=== PATIENT | male | born 1980 | race Caucasian/White ===

== ENCOUNTER 2019-04-19 13:41 | Emergency (ER) | payer OTHER, SELFPAY ==
[2019-04-19 14:17] VITALS: BP 145/91; PULSE 108; RESP 18; TEMP 36.4; O2SAT 100
--- NOTE | 2019-04-19 14:18 | DI.RAD.S_ITS ---
PROCEDURE: XR FOOT LT MIN 3V INDICATIONS: Wounds on foot. Possible osteo. TECHNIQUE: During views of the foot were acquired. COMPARISON: [facility], MR, FOOT W&WO CONTRAST, 10/03/2016, 18:18. FINDINGS: There is prominent focal soft tissue swelling about the 5th metatarsophalangeal joint with associated soft tissue air. Lucency involving the head of the 5th metatarsal with developing erosions is identified. There also appear to be erosions involving the proximal phalanx of the 5th toe. No definite additional bony erosions are appreciated. No displaced fractures or dislocations are identified. No suspicious soft tissue abnormalities or radiopaque foreign bodies are evident. IMPRESSION: Erosions/lucencies involving the 5th metatarsophalangeal joint with overlying soft tissue swelling and soft tissue air are suggestive of a focal infection with osteomyelitis. Clinical correlation is recommended. Dictated by: James Johnson M.D. on 04/19/2019 at 13:47 Approved by: James Johnson M.D. on 04/19/2019 at 13:49
[2019-04-19 15:12] VITALS: BP 128/92; PULSE 97; RESP 16; O2SAT 98
--- NOTE | 2019-04-19 15:49 | ED_ITS ---
HPI - Wound/Laceration <Rosa MartinoJOSE - Last Filed: 04/19/19 20:52> General Chief Complaint: Wound/Laceration Stated Complaint: wound on left foot Time Seen by Provider: 04/19/19 14:49 Source: patient and family Mode of arrival: Wheelchair History of Present Illness HPI narrative: 38yo male with a history of insulin-dependent diabetes and past surgery for osteomyelitis in the same put a few years ago, presents to the emergency department complaining of a two wounds on his left foot (one on the plantar aspect in the top of foot), he states he was sent here by wound care, he sees would be [facility]. Patient states a few weeks ago he developed a blister on his foot, it popped any continue to wear his boots at later got infected. He was seen by his primary care provider a few weeks ago a nd started on antibiotics. Three days ago he developed an abscess which was drained 3 days ago. Patient is continue to take cephalexin and Bactrim, he states the redness and swelling has significantly improved. However, the wound care nurse arrived as home today and was worried about the deepness of the wound so he was sent for an evaluation of osteomyelitis. Patient denies any fevers, chills, nausea, vomiting, diarrhea, worsening pain, or other concerns. He states he has had osteomyelitis on his foot in the past this had surgery for this but the current wounds are different from his previous infections. Patient states he has another appointment with his primary care doctor scheduled on Monday. Related Data Home Medications Medication Instructions Recorded Confirmed insulin glargine [Lantus U-100 45 unit SQ HS #0 08/15/16 Insulin] insulin glulisine U-100 [Apidra 0 unit SQ #0 08/15/16 U-100 Insulin] atorvastatin 20 mg PO DAILY 04/19/19 04/19/19 cephalexin 1,000 mg PO [id number] 04/19/19 04/19/19 insulin NPH isoph U-100 human unit SUBCUT 04/19/19 [Humulin N NPH Insulin KwikPen] lisinopril 10 mg PO DAILY 04/19/19 04/19/19 sulfamethoxazole-trimethoprim 1 tab PO [id number] 04/19/19 04/19/19 Allergies Allergy/AdvReac Type Severity Reaction Status Date / Time No Known Drug Allergies Allergy Unknown Unverified 06/21/17 12:29 [NO KNOWN DRUG ALLERGIES] HAYFEVER Allergy Unknown Uncoded 06/21/17 12:29 Review of Systems <JOSE Jaimes - Last Filed: 04/19/19 20:52> Review of Systems Narrative: REVIEW OF SYSTEMS: GENERAL: Denies fever or chills. HENT: Denies head trauma. EYE: Denies double vision or vision loss. CARDIOVASCULAR: Denies syncope. MUSCULOSKELETAL: Denies weakness, or deformities. INTEGUMENTARY: Complains of wound to left foot, see HPI. NEURO: Denies numbness or tingling. Patient History <JOSE Jaimes - Last Filed: 04/19/19 20:52> Medical History Diabetes (Acute) Diabetic foot ulcer (Acute) Social History Smoking Status: Smoker, status unknown Smoking Status: Smoker, status unknown Substance Use Type: does not use Exam <JOSE Jaimes - Last Filed: 04/19/19 20:52> Initial Vital Signs Initial Vital Signs: Vital Signs Temperature 97.5 F L 04/19/19 14:17 Pulse Rate 108 H 04/19/19 14:17 Respiratory Rate 18 04/19/19 14:17 Blood Pressure 145/91 H 04/19/19 14:17 Pulse Oximetry 100 04/19/19 14:17 PHYSICAL EXAMINATION: GENERAL: Well groomed, alert, and cooperative. Answers questions promptly and appropriately. Vital signs noted. HENT: Normocephalic, atraumatic. Ear canals patent. Oral mucosa is pink and moist. EYES: Conjunctiva pink, sclera white, no periorbital swelling. CHEST: Normal to inspection and without deformities. CARDIOVASCULAR: S1 and S2 sounds normal. Regular rate and rhythm, no murmurs, clicks, or bruits. No pedal edema. RESPIRATORY: Normal respiratory rate, trachea midline, airway patent. No stridor, nasal flaring or accessory muscle use. Lungs are clear in all [place] without wheeze, rhonchi, or crackles. GASTROINTESTINAL: Bowel sounds normoactive. Abdomen is soft and non-tender. No organomegaly. MUSCULOSKELETAL: Normal gait and coordination. Equal tone and mass bilaterally. EXTREMITIES: CMS intact to feet and toes. Pedal pulses 2+ and intact. SKIN: Warm, dry, soft, appropriate color for ethnicity. A circular wound approximately 3cm x 3.5cm noted to the top of left foot over mid 4th and 5th metatarsals--shallow in nature, wound bed with yellow tissue and surrounding dried serosanguineous drainage. We deep tunneling circular wound noted on the bottom aspect of left foot approximately over 4th and 5th metatarsals and is 2 cm x 2 cm in diameter and >2cm deep, yellow granular tissue and minute amount of serosanguineous drainage noted. No necrosis visualized. NEURO: Alert and Oriented X 3. Good coordination. No ataxia, or sensory deficits, or cognitive issues. PSYCH: Appropriate affect and mood. <Harper Arechiga DO - Last Filed: 04/19/19 21:19> Initial Vital Signs Initial Vital Signs: Vital Signs Temperature 97.5 F L 04/19/19 14:17 Pulse Rate 108 H 04/19/19 14:17 Respiratory Rate 18 04/19/19 14:17 Blood Pressure 145/91 H 04/19/19 14:17 Pulse Oximetry 100 04/19/19 14:17 Course <JOSE Jaimes - Last Filed: 04/19/19 20:52> Course Course Narrative: Patient states he was not diagnosed with osteomyelitis with these wounds at this time, he states his last x-ray about a week ago showed ?no evidence of osteomyelitis. Patient states if given a choice he would rather return home and receive infusions versus be admitted. Patient was started on v ancomycin and ceftriaxone. After discussion with patient, he states he will leave Against Medical Advice he has too as he does not like staying in the hospital. Patient states he does have an appointment with his provider on Monday to order the wound care. Patient continues to be hemodynamically stable throughout the emergency department stay. Orders Ordered: ED Orders 04/19/19 14:18 XR foot LT min 3V Stat 04/19/19 15:45 C-Reactive Protein Quant Stat Complete Blood Count AUTO DIFF Stat Comprehensive Metabolic Panel Stat Erythrocyte Sedimentation Rate Stat Hemoglobin A1C% w Est Avg Glu Stat Lactate (Lactic Acid) Stat Procalcitonin Stat 04/19/19 15:56 Wound Culture and Gram Stain Stat 04/19/19 16:15 Blood Culture Stat 04/19/19 18:55 MR foot LT wo/w con Stat Discontinued Medications Ceftriaxone Sodium/Dextrose (Rocephin) 2 gm in 50 mls @ 100 mls/hr IV NOW ONE Stop: 04/19/19 17:45 Last Infusion: 04/19/19 18:00 Dose: 0 mls/hr Documented by: Admin: 04/19/19 17:24 Dose: 100 mls/hr Documented by: VANESSA Vancomycin HCl/Dextrose (Vancomycin) 2,000 mg in 400 mls @ 200 mls/hr IV NOW ONE Stop: 04/19/19 19:17 Last Admin: 04/19/19 18:00 Dose: 200 mls/hr Documented by: VANESSA Consultations Consultation #1: Patient staffed with Dr. Arechiga Consultation #2: I spoke with Dr. Youssef who states that I do not take care of feet or foot infections. He suggested calling the hospitalist for possible admission and/or transfer. I then spoke with Dr. Covarrubias who states that in order to admit the patient she needs to have an orthopedic on board. Dr. Covarrubias called back after she spoke with Dr. Guillen from ortho who viewed the images and stated that patient is a candidate for continuation of oral a ntibiotics and close follow-up in the clinic on Monday. Dr. Gilliam called again to inform me that she spoke with Dr. Caban who recommended obtaining a foot MRI with without contrast. Dr. Caban was seen in the ED evaluating the patient and agrees after an MRI patient can continue his oral medications and be seen in the clinic on Monday. Vital Signs Vital signs: Vital Signs - 8 hr 04/19/19 14:17 04/19/19 15:12 04/19/19 17:00 Temperature 97.5 F L Pulse Rate 108 H 97 H 93 H Respiratory Rate 18 16 16 Blood Pressure 145/91 H Blood Pressure [Left Arm] 128/92 H 173/94 H Pulse Oximetry 100 98 99 04/19/19 18:48 Temperature Pulse Rate 93 H Respiratory Rate 16 Blood Pressure Blood Pressure [Left Arm] 139/79 Pulse Oximetry 98 <Harper Arechiga, DO - Last Filed: 04/19/19 21:19> Orders Ordered: ED Orders 04/19/19 14:18 XR foot LT min 3V Stat 04/19/19 15:45 C-Reactive Protein Quant Stat Complete Blood Count AUTO DIFF Stat Comprehensive Metabolic Panel Stat Erythrocyte Sedimentation Rate Stat Hemoglobin A1C% w Est Avg Glu Stat Lactate (Lactic Acid) Stat Procalcitonin Stat 04/19/19 15:56 Wound Culture and Gram Stain Stat 04/19/19 16:15 Blood Culture Stat 04/19/19 18:55 MR foot LT wo/w con Stat Discontinued Medications Ceftriaxone Sodium/Dextrose (Rocephin) 2 gm in 50 mls @ 100 mls/hr IV NOW ONE Stop: 04/19/19 17:45 Last Infusion: 04/19/19 18:00 Dose: 0 mls/hr Documented by: Admin: 04/19/19 17:24 Dose: 100 mls/hr Documented by: VANESSA Vancomycin HCl/Dextrose (Vancomycin) 2,000 mg in 400 mls @ 200 mls/hr IV NOW ONE Stop: 04/19/19 19:17 Last Admin: 04/19/19 18:00 Dose: 200 mls/hr Documented by: VANESSA Vital Signs Vital signs: Vital Signs - 8 hr 04/19/19 14:17 04/19/19 15:12 04/19/19 17:00 Temperature 97.5 F L Pulse Rate 108 H 97 H 93 H Respiratory Rate 18 16 16 Blood Pressure 145/91 H Blood Pressure [Left Arm] 128/92 H 173/94 H Pulse Oximetry 100 98 99 04/19/19 18:48 Temperature Pulse Rate 93 H Respiratory Rate 16 Blood Pressure Blood Pressure [Left Arm] 139/79 Pulse Oximetry 98 MDM - Wound/Laceration <JOSE Jaimes - Last Filed: 04/19/19 20:52> Medical Records Attestation: I reviewed the patient's medical records. Lab Data Attestation: I reviewed the patient's lab results. Result diagrams: 04/19/19 15:45 04/19/19 15:45 Labs: Lab Results 04/19/19 04/19/19 04/19/19 Range/Units 15:45 15:45 15:45 WBC 9.2 (4.5-11.0) X10^3/uL RBC 4.86 (4.5-5.9) X10^6/uL Hgb 13.5 (13.5-17.5) g/dL Hct 39.0 L (41-53) % MCV 80.3 (80-100) fL MCH 27.7 (26-34) PG MCHC 34.5 (30-36) % RDW 13.3 (11.6-14.8) % Plt Count 447 H (150-400) X10^3/uL Neut % (Auto) 61.5 (50-75) % Lymph % (Auto) 28.4 (25-40) % [place] % (Auto) 6.5 (3-14) % Eos % (Auto) 2.4 (2-4) % Baso % (Auto) 1.2 (0-2) % Neut # (Auto) 5700 (9191-2882) /uL Lymph # (Auto) 2600 (5019-3167) /uL [place] # (Auto) 600 (0-900) /uL Eos # (Auto) 200 (0-450) /uL Baso # (Auto) 100 (0-100) /uL ESR (0-15) MM/HR Sodium 139 (137-145) mmol/L Potassium 4.3 (3.4-5.1) mmol/L Chloride 100 (98-107) mmol/L Carbon Dioxide 29 (22-32) mmol/L BUN 23 H (9-20) mg/dL Creatinine 1.20 (0.66-1.25) mg/dL Estimated GFR > 60.0 (>60) mL/min BUN/Creatinine Ratio 19.2 (6-22) Glucose 170 H (70-100) mg/dL Hemoglobin A1c (4.0-6.0) % Lactate (0.7-2.1) mmol/L Calcium 9.7 (8.4-10.2) mg/dL Total Bilirubin 0.4 (0.2-1.3) mg/dL AST 22 (17-59) IU/L ALT 19 (<50) IU/L Alkaline Phosphatase 75 (38-126) U/L C-Reactive Protein (<1.0) mg/dL Total Protein 8.7 H (6.3-8.2) g/dL Albumin 4.1 (3.5-5.0) g/dL Globulin 4.6 H (1.7-4.1) g/dL Albumin/Globulin Ratio 0.9 L (1.0-2.8) Procalcitonin < 0.05 (<0.5) ng/mL 04/19/19 04/19/19 04/19/19 Range/Units 15:45 15:45 15:45 WBC (4.5-11.0) X10^3/uL RBC (4.5-5.9) X10^6/uL Hgb (13.5-17.5) g/dL Hct (41-53) % MCV (80-100) fL MCH (26-34) PG MCHC (30-36) % RDW (11.6-14.8) % Plt Count (150-400) X10^3/uL Neut % (Auto) (50-75) % Lymph % (Auto) (25-40) % [place] % (Auto) (3-14) % Eos % (Auto) (2-4) % Baso % (Auto) (0-2) % Neut # (Auto) (6618-3800) /uL Lymph # (Auto) (8123-8229) /uL [place] # (Auto) (0-900) /uL Eos # (Auto) (0-450) /uL Baso # (Auto) (0-100) /uL ESR 41 H (0-15) MM/HR Sodium (137-145) mmol/L Potassium (3.4-5.1) mmol/L Chloride (98-107) mmol/L Carbon Dioxide (22-32) mmol/L BUN (9-20) mg/dL Creatinine (0.66-1.25) mg/dL Estimated GFR (>60) mL/min BUN/Creatinine Ratio (6-22) Glucose (70-100) mg/dL Hemoglobin A1c (4.0-6.0) % Lactate 1.0 (0.7-2.1) mmol/L Calcium (8.4-10.2) mg/dL Total Bilirubin (0.2-1.3) mg/dL AST (17-59) IU/L ALT (<50) IU/L Alkaline Phosphatase (38-126) U/L C-Reactive Protein 1.5 H (<1.0) mg/dL Total Protein (6.3-8.2) g/dL Albumin (3.5-5.0) g/dL Globulin (1.7-4.1) g/dL Albumin/Globulin Ratio (1.0-2.8) Procalcitonin (<0.5) ng/mL 04/19/19 Range/Units 15:45 WBC (4.5-11.0) X10^3/uL RBC (4.5-5.9) X10^6/uL Hgb (13.5-17.5) g/dL Hct (41-53) % MCV (80-100) fL MCH (26-34) PG MCHC (30-36) % RDW (11.6-14.8) % Plt Count (150-400) X10^3/uL Neut % (Auto) (50-75) % Lymph % (Auto) (25-40) % [place] % (Auto) (3-14) % Eos % (Auto) (2-4) % Baso % (Auto) (0-2) % Neut # (Auto) (5070-0402) /uL Lymph # (Auto) (8691-4522) /uL [place] # (Auto) (0-900) /uL Eos # (Auto) (0-450) /uL Baso # (Auto) (0-100) /uL ESR (0-15) MM/HR Sodium (137-145) mmol/L Potassium (3.4-5.1) mmol/L Chloride (98-107) mmol/L Carbon Dioxide (22-32) mmol/L BUN (9-20) mg/dL Creatinine (0.66-1.25) mg/dL Estimated GFR (>60) mL/min BUN/Creatinine Ratio (6-22) Glucose (70-100) mg/dL Hemoglobin A1c 10.9 H (4.0-6.0) % Lactate (0.7-2.1) mmol/L Calcium (8.4-10.2) mg/dL Total Bilirubin (0.2-1.3) mg/dL AST (17-59) IU/L ALT (<50) IU/L Alkaline Phosphatase (38-126) U/L C-Reactive Protein (<1.0) mg/dL Total Protein (6.3-8.2) g/dL Albumin (3.5-5.0) g/dL Globulin (1.7-4.1) g/dL Albumin/Globulin Ratio (1.0-2.8) Procalcitonin (<0.5) ng/mL Imaging Data Extremity x-ray #1: Radiologist's Impression: [address] [address] XRay Report Signed Patient: Mahesh DickersonMR#: [id number] : 1980Acct:[id number] Age/Sex: 38 / MDate of Service: 04/19/19 Loc: ED Accession Number: [id number] Procedure: XR foot LT min 3V Ordering Provider: Harper Arechiga D.O. PROCEDURE: XR FOOT LT MIN 3V INDICATIONS: Wounds on foot. Possible osteo. TECHNIQUE: During views of the foot were acquired. COMPARISON: [facility], MR, FOOT W&WO CONTRAST, 10/03/2016, 18:18. FINDINGS: There is prominent focal soft tissue swelling about the 5th metatarsophalangeal joint with associated soft tissue air. Lucency involving the head of the 5th metatarsal with developing erosions is identified. There also appear to be erosions involving the proximal phalanx of the 5th toe. No definite additional bony erosions are appreciated. No displaced fractures or dislocations are identified. No suspicious soft tissue abnormalities or radiopaque foreign bodies are evident. IMPRESSION: Erosions/lucencies involving the 5th metatarsophalangeal joint with overlying soft tissue swelling and soft tissue air are suggestive of a focal infection with osteomyelitis. Clinical correlation is recommended. Dictated by: James Johnson M.D. on 04/19/2019 at 13:47 Approved by: James Johnson M.D. on 04/19/2019 at 13:49 [facility] Narrative Medical decision making narrative: 38-year-old male with a history of diabetes and history of osteomyelitis to the same foot presents to emergency department the recommendation of the wound care nurse for rule out osteomyelitis in his chronic wound. Changes seen on x-ray are her suspicious for osteomyelitis. This wound is IV slight complicated by his diabetes (hemoglobin A1c of 10). L ess suspicion for sepsis as patient denies any systemic symptoms such as fevers and is hemodynamically stable throughout the emergency department without evidence of sepsis (normal heart rate, normal respiratory rate, normal temperature, and normal lactate and white blood cell count. Patient had el evated C reactive protein of 1.5 and an elevated ESR at 41. After consultation with hospitalist, Dr. Green came to the emergency department to examine the patient. She recommended a foot MRI which was able to be completed in the emergency department and continuation without patient antibiotics (patient was currently taking Keflex and Bactrim), was not patient appointment scheduled on Monday. This approach appeared to work best for patient as patient was continued to refuse admission to the hospital as he states ?I had a bad experience at [facility]?. Patient was discharged with instructions as above, he was given very strict ED return precautions for new or worsening symptoms such as increased redness, pain, fevers, chills, etc. patient agreed with plan of care verbalized understanding. <Harper Arechiga, DO - Last Filed: 04/19/19 21:19> Lab Data Attestation: I reviewed the patient's lab results. Labs: Lab Results 04/19/19 04/19/19 04/19/19 Range/Units 15:45 15:45 15:45 WBC 9.2 (4.5-11.0) X10^3/uL RBC 4.86 (4.5-5.9) X10^6/uL Hgb 13.5 (13.5-17.5) g/dL Hct 39.0 L (41-53) % MCV 80.3 (80-100) fL MCH 27.7 (26-34) PG MCHC 34.5 (30-36) % RDW 13.3 (11.6-14.8) % Plt Count 447 H (150-400) X10^3/uL Neut % (Auto) 61.5 (50-75) % Lymph % (Auto) 28.4 (25-40) % [place] % (Auto) 6.5 (3-14) % Eos % (Auto) 2.4 (2-4) % Baso % (Auto) 1.2 (0-2) % Neut # (Auto) 5700 (7191-7101) /uL Lymph # (Auto) 2600 (6432-0720) /uL [place] # (Auto) 600 (0-900) /uL Eos # (Auto) 200 (0-450) /uL Baso # (Auto) 100 (0-100) /uL ESR (0-15) MM/HR Sodium 139 (137-145) mmol/L Potassium 4.3 (3.4-5.1) mmol/L Chloride 100 (98-107) mmol/L Carbon Dioxide 29 (22-32) mmol/L BUN 23 H (9-20) mg/dL Creatinine 1.20 (0.66-1.25) mg/dL Estimated GFR > 60.0 (>60) mL/min BUN/Creatinine Ratio 19.2 (6-22) Glucose 170 H (70-100) mg/dL Hemoglobin A1c (4.0-6.0) % Lactate (0.7-2.1) mmol/L Calcium 9.7 (8.4-10.2) mg/dL Total Bilirubin 0.4 (0.2-1.3) mg/dL AST 22 (17-59) IU/L ALT 19 (<50) IU/L Alkaline Phosphatase 75 (38-126) U/L C-Reactive Protein (<1.0) mg/dL Total Protein 8.7 H (6.3-8.2) g/dL Albumin 4.1 (3.5-5.0) g/dL Globulin 4.6 H (1.7-4.1) g/dL Albumin/Globulin Ratio 0.9 L (1.0-2.8) Procalcitonin < 0.05 (<0.5) ng/mL 04/19/19 04/19/19 04/19/19 Range/Units 15:45 15:45 15:45 WBC (4.5-11.0) X10^3/uL RBC (4.5-5.9) X10^6/uL Hgb (13.5-17.5) g/dL Hct (41-53) % MCV (80-100) fL MCH (26-34) PG MCHC (30-36) % RDW (11.6-14.8) % Plt Count (150-400) X10^3/uL Neut % (Auto) (50-75) % Lymph % (Auto) (25-40) % [place] % (Auto) (3-14) % Eos % (Auto) (2-4) % Baso % (Auto) (0-2) % Neut # (Auto) (8617-2978) /uL Lymph # (Auto) (7081-3454) /uL [place] # (Auto) (0-900) /uL Eos # (Auto) (0-450) /uL Baso # (Auto) (0-100) /uL ESR 41 H (0-15) MM/HR Sodium (137-145) mmol/L Potassium (3.4-5.1) mmol/L Chloride (98-107) mmol/L Carbon Dioxide (22-32) mmol/L BUN (9-20) mg/dL Creatinine (0.66-1.25) mg/dL Estimated GFR (>60) mL/min BUN/Creatinine Ratio (6-22) Glucose (70-100) mg/dL Hemoglobin A1c (4.0-6.0) % Lactate 1.0 (0.7-2.1) mmol/L Calcium (8.4-10.2) mg/dL Total Bilirubin (0.2-1.3) mg/dL AST (17-59) IU/L ALT (<50) IU/L Alkaline Phosphatase (38-126) U/L C-Reactive Protein 1.5 H (<1.0) mg/dL Total Protein (6.3-8.2) g/dL Albumin (3.5-5.0) g/dL Globulin (1.7-4.1) g/dL Albumin/Globulin Ratio (1.0-2.8) Procalcitonin (<0.5) ng/mL 04/19/19 Range/Units 15:45 WBC (4.5-11.0) X10^3/uL RBC (4.5-5.9) X10^6/uL Hgb (13.5-17.5) g/dL Hct (41-53) % MCV (80-100) fL MCH (26-34) PG MCHC (30-36) % RDW (11.6-14.8) % Plt Count (150-400) X10^3/uL Neut % (Auto) (50-75) % Lymph % (Auto) (25-40) % [place] % (Auto) (3-14) % Eos % (Auto) (2-4) % Baso % (Auto) (0-2) % Neut # (Auto) (1689-7139) /uL Lymph # (Auto) (2675-9408) /uL [place] # (Auto) (0-900) /uL Eos # (Auto) (0-450) /uL Baso # (Auto) (0-100) /uL ESR (0-15) MM/HR Sodium (137-145) mmol/L Potassium (3.4-5.1) mmol/L Chloride (98-107) mmol/L Carbon Dioxide (22-32) mmol/L BUN (9-20) mg/dL Creatinine (0.66-1.25) mg/dL Estimated GFR (>60) mL/min BUN/Creatinine Ratio (6-22) Glucose (70-100) mg/dL Hemoglobin A1c 10.9 H (4.0-6.0) % Lactate (0.7-2.1) mmol/L Calcium (8.4-10.2) mg/dL Total Bilirubin (0.2-1.3) mg/dL AST (17-59) IU/L ALT (<50) IU/L Alkaline Phosphatase (38-126) U/L C-Reactive Protein (<1.0) mg/dL Total Protein (6.3-8.2) g/dL Albumin (3.5-5.0) g/dL Globulin (1.7-4.1) g/dL Albumin/Globulin Ratio (1.0-2.8) Procalcitonin (<0.5) ng/mL MDM Narrative Medical decision making narrative: Patient in with x-ray concerning for osteomyelitis the initial plan was for admission the orthopedic surgeon referred to Podiatry or any orthopedic surgeon who can best care for the patient. This was discussed with the hospitalist to spoke with Dr. Caban from orthopedic surgery who came and saw the patient here in the department. Patient does not wish to be admitted. Dr. Caban requested MRI if we are able to obtain this in the department and outpatient follow-up on Monday as planned at this time with care being taken over by orthopedic surgery. Discharge Plan Departure Patient Disposition: Home Clinical Impression: Diabetic foot ulcer Qualifiers: Diabetic foot ulcer location: midfoot Diabetes mellitus type: other specified (including [place]) Laterality: left Non-pressure ulcer stage: with bone involvement without evidence of necrosis Qualified Code(s): E13.621 - Other specified diabetes mellitus with foot ulcer Osteomyelitis Qualifiers: Osteomyelitis type: unspecified type Osteomyelitis location: foot Laterality: left Qualified Code(s): M86.9 - Osteomyelitis, unspecified Instructions: DI for Osteomyelitis Activity Restrictions/Additional Instructions: Thank you for entrusting me with your care today. As discussed in much detail, please follow up with Dr. Caban who seen you in the emergency department today on Monday, please call the office provided below to schedule an appointment. Continue to take your antibiotics as prescribed. Return emergency department immediately for any new or worsening symptoms such as increasing redness, purulent drainage, fevers, chills, uncontrollable vomiting, or other concerns. Prescriptions: No Action insulin glargine [Lantus U-100 Insulin] 100 UNIT/1 ML solution 45 unit SQ HS Qty: 0 RF: 0 insulin glulisine U-100 [Apidra U-100 Insulin] 100 UNIT/1 ML solution 0 unit SQ Qty: 0 RF: 0 atorvastatin 20 mg Tablet 20 mg PO DAILY RF: 0 sulfamethoxazole-trimethoprim 800-160 mg tablet 1 tab PO [id number] RF: 0 cephalexin 500 mg capsule 1,000 mg PO [id number] RF: 0 lisinopril 10 mg Tablet 10 mg PO DAILY RF: 0 Humulin N NPH Insulin KwikPen 100 unit/mL (3 mL) Insulin Pen SUBCUT RF: 0
[2019-04-19 15:55] LABS: Add Manual Diff / Slide Review NO; Basophils Absolute Auto 100 /uL (0-100); Basophils Percent Auto 1.2 % (0-2); Eosinophils Absolute Auto 200 /uL (0-450); Eosinophils Percent Auto 2.4 % (2-4); Hemoglobin 13.5 g/dL (13.5-17.5); Lymphocytes Absolute Auto 2600 /uL (1100-4500); Lymphocytes Percent Auto 28.4 % (25-40); Mean Corpuscular HGB Conc 34.5 % (30-36); Mean Corpuscular Hemoglobin 27.7 PG (26-34); Mean Corpuscular Volume 80.3 fL (80-100); Monocytes Absolute Auto 600 /uL (0-900); Monocytes Percent Auto 6.5 % (3-14); Neutrophils Absolute Auto 5700 /uL (1500-7000); Neutrophils Percent Auto 61.5 % (50-75); Platelet Count 447 X10^3/uL (150-400); Red Blood Cell Count 4.86 X10^6/uL (4.5-5.9); Red Cell Distribution Width 13.3 % (11.6-14.8); White Blood Cell Count 9.2 X10^3/uL (4.5-11.0)
[2019-04-19 16:11] LABS: Alanine Aminotransferase 19 IU/L (<50); Albumin 4.1 g/dL (3.5-5.0); Albumin Globulin Ratio 0.9 (1.0-2.8); Alkaline Phosphatase 75 U/L (38-126); Aspartate Aminotransferase 22 IU/L (17-59); BUN Creatinine Ratio 19.2 (6-22); Bilirubin Total 0.4 mg/dL (0.2-1.3); Blood Urea Nitrogen 23 mg/dL (9-20); Calcium 9.7 mg/dL (8.4-10.2); Carbon Dioxide 29 mmol/L (22-32); Chloride 100 mmol/L (98-107); Estimated Glomerular Filt Rate > 60.0 mL/min (>60); Globulin 4.6 g/dL (1.7-4.1); Glucose 170 mg/dL (70-100); HEMOLYSIS < 15 (0-50); Potassium 4.3 mmol/L (3.4-5.1); Sodium 139 mmol/L (137-145); Total Protein 8.7 g/dL (6.3-8.2)
[2019-04-19 16:13] LABS: Erythrocyte Sedimentation Rate 41 MM/HR (0-15)
[2019-04-19 16:18] LABS: C-Reactive Protein Quant 1.5 mg/dL (<1.0)
[2019-04-19 16:36] LABS: Procalcitonin < 0.05 ng/mL (<0.5)
[2019-04-19 17:00] VITALS: BP 173/94; PULSE 93; RESP 16; O2SAT 99
[2019-04-19] MEDS: CEFTRIAXONE 2 GM/50 ML FROZ.PIGGY IV (17:24)
[2019-04-19] MEDS: VANCOMYCIN 2,000 MG/400 ML PIGGYBACK 200 MG IV (18:00)
[2019-04-19 18:12] LABS: Hemoglobin A1C% w Est Avg Glu 10.9 % (4.0-6.0)
[2019-04-19 18:48] VITALS: BP 139/79; PULSE 93; RESP 16; O2SAT 98
--- NOTE | 2019-04-19 18:55 | DI.MRI.S_ITS ---
PROCEDURE: MR FOOT LT WO/W CON INDICATIONS: Osteomyelitis TECHNIQUE: Noncontrast sagittal T1 spin echo and T2 fast spin echo with fat saturation, long-axis T1 spin echo and T2 fast spin echo with fat saturation; short-axis T1 spin echo, proton density fast spin echo, and T2 fast spin echo with fat saturation through the forefoot. Post-contrast short axis, long axis, and sagittal T1 spin echo with fat saturation through the forefoot. COMPARISON: [facility], CR, XR FOOT LT MIN 3V, 04/19/2019, 14:18. [facility], MR, FOOT W&WO CONTRAST, 10/03/2016, 18:18. FINDINGS: Image quality: Diagnostic Bones and joints: There is loss of the normal fatty marrow signal seen involving the proximal phalanx of the 5th toe as well as the distal aspect of the 5th metatarsal, with decreased T1 weighted signal and increased T2-weighted/STIR signal. Abnormal enhancement can be seen at these sites. Generalized degenerative changes are seen elsewhere. Soft tissues: Along the 5th metatarsophalangeal joint superiorly, there is abnormal fluid seen, with multiple locules of fluid, which is best demonstrated on the post contrast imaging series, where the fluid demonstrates rim enhancement. The total span of the fluid collections measures 3 x 2.4 x 2.3 cm. The abnormal fluid extends to the skin surface. More generalized cellulitis can be seen within the surrounding soft tissues, with generalized increased T2-weighted signal and a generalized enhancement. IMPRESSION: Osteomyelitis involving this metatarsophalangeal joint. A multiloculated soft tissue abscess can be seen that measures up to 3 cm. Dictated by: Sage Moeller M.D. on 04/19/2019 at 21:02 Approved by: Sage Moeller M.D. on 04/19/2019 at 21:08
[2019-04-19 21:59] VITALS: BP 117/68; PULSE 83; RESP 16; O2SAT 97
--- NOTE | 2019-04-20 09:07 | P.CONS_ITS ---
History of Present Illness Consult details Date Patient Seen: 04/19/19 Time Patient Seen: 18:00 Chief complaint: wound on left foot Reason for consult: left foot diabetic ulcer/infection Requesting provider: Maia Covarrubias Narrative: The patient is a 38 yo IDDM with Left foor infection. I was asked to see pt by Dr. Covarrubias and ER for advice/care. the pt has a hx of previous left foor diabetic infection requireing multiple surgeries which were done at [facility] in [place] 3 years ago, this was around his first ray. he also had IV abx course at that time and healed better than expected. He believes his last hgba1c was 7.6. He endorses 3 weeks of foot swelling pain and then a blister popped and decompressed. He saw his pcp and had got oral abx since last keflex/bactrim and states it is looking much better and previously he endorses cellultiits up his leg. he denies fevers/chills. he has a ulcer at the plantar 5th mtpj and then a newer dorsal blisters/abscess that decompressed. He has been getting home health wound care which encouraged him to come to ER, but pt reports foot does not look worse and actually looks better than previous. He is adverse to an admission for hospital care at this time. Meds Home Medications and Allergies Home Medications Medication Instructions Recorded Confirmed Type insulin glargine [Lantus U-100 45 unit SQ HS #0 08/15/16 History Insulin] insulin glulisine U-100 [Apidra 0 unit SQ #0 08/15/16 History U-100 Insulin] atorvastatin 20 mg PO DAILY 04/19/19 04/19/19 History cephalexin 1,000 mg PO [id number] 04/19/19 04/19/19 History insulin NPH isoph U-100 human unit SUBCUT 04/19/19 History [Humulin N NPH Insulin KwikPen] lisinopril 10 mg PO DAILY 04/19/19 04/19/19 History sulfamethoxazole-trimethoprim 1 tab PO [id number] 04/19/19 04/19/19 History Allergies Allergy/AdvReac Type Severity Reaction Status Date / Time No Known Drug Allergies Allergy Unknown Unverified 06/21/17 12:29 [NO KNOWN DRUG ALLERGIES] HAYFEVER Allergy Unknown Uncoded 06/21/17 12:29 Review of Systems Review of Systems Narrative: DM (IDDM) --left foot swelling, ulcer, wound. denies fever/chills ROS: Yes All systems reviewed with the patient and are negative except as otherwise documented Exam Vital Signs (past 8 hours): Oxygen Delivery Method Room Air Narrative Exam Narrative: gen: AOx3 nontoxic appearing male, appears stated age. no acute distress HEENT: NCAT RESP: ublabored RA LCTAB CV: RRR MSK: LLE: moderate swelling dorsal-lateral left foot, faint cellultiis at dorsum foot. none across ankle for leg. calf soft nontender. two wounds one smaller plantar ulcer at 5th MTPJ no gross purulence and a dorsal wound at same level. SILT. palp pulses, brisk cap refill. no crepitus or new blisters. well healed surgical scar 1st webspace. Objective Labs Result Diagrams: 04/19/19 15:45 04/19/19 15:45 Labs: Laboratory Results - last 24 hr 04/19/19 04/19/19 04/19/19 15:45 15:45 15:45 WBC 9.2 RBC 4.86 Hgb 13.5 Hct 39.0 L MCV 80.3 MCH 27.7 MCHC 34.5 RDW 13.3 Plt Count 447 H Neut % (Auto) 61.5 Lymph % (Auto) 28.4 Traverse % (Auto) 6.5 Eos % (Auto) 2.4 Baso % (Auto) 1.2 Neut # (Auto) 5700 Lymph # (Auto) 2600 Traverse # (Auto) 600 Eos # (Auto) 200 Baso # (Auto) 100 ESR Sodium 139 Potassium 4.3 Chloride 100 Carbon Dioxide 29 BUN 23 H Creatinine 1.20 Estimated GFR > 60.0 BUN/Creatinine Ratio 19.2 Glucose 170 H Hemoglobin A1c Lactate Calcium 9.7 Total Bilirubin 0.4 AST 22 ALT 19 Alkaline Phosphatase 75 C-Reactive Protein Total Protein 8.7 H Albumin 4.1 Globulin 4.6 H Albumin/Globulin Ratio 0.9 L Procalcitonin < 0.05 04/19/19 04/19/19 04/19/19 15:45 15:45 15:45 WBC RBC Hgb Hct MCV MCH MCHC RDW Plt Count Neut % (Auto) Lymph % (Auto) Traverse % (Auto) Eos % (Auto) Baso % (Auto) Neut # (Auto) Lymph # (Auto) Traverse # (Auto) Eos # (Auto) Baso # (Auto) ESR 41 H Sodium Potassium Chloride Carbon Dioxide BUN Creatinine Estimated GFR BUN/Creatinine Ratio Glucose Hemoglobin A1c Lactate 1.0 Calcium Total Bilirubin AST ALT Alkaline Phosphatase C-Reactive Protein 1.5 H Total Protein Albumin Globulin Albumin/Globulin Ratio Procalcitonin 04/19/19 15:45 WBC RBC Hgb Hct MCV MCH MCHC RDW Plt Count Neut % (Auto) Lymph % (Auto) Traverse % (Auto) Eos % (Auto) Baso % (Auto) Neut # (Auto) Lymph # (Auto) Traverse # (Auto) Eos # (Auto) Baso # (Auto) ESR Sodium Potassium Chloride Carbon Dioxide BUN Creatinine Estimated GFR BUN/Creatinine Ratio Glucose Hemoglobin A1c 10.9 H Lactate Calcium Total Bilirubin AST ALT Alkaline Phosphatase C-Reactive Protein Total Protein Albumin Globulin Albumin/Globulin Ratio Procalcitonin Assessment & Plan Assessment & Plan narrative: IDDM: uncontrolled --hgba1c 10.9 today - pt thought last was 7.6% needs better control to heal and reduce additional complication risks. L foot diabetic ulcer and infection: osteomyelitis on 5th MTPJ with joint destruction on xR. MRI coorletates. recommend I&D and amp 5th toe and partial 5th MT amp. discussed may also require additional wound care if not closable at time of surgery. discussed wtd or wound vac if needed. Pt is nontoxic appearing right now and endorses improved appearance. Discussed a planned surgery for this amp in the coming days as and option (next week) discussed would plan overnight stay for IV abx and possible longer if infection required prolonged IV abx or setting up wound care/vac changes. this would depend on intraop findings. discussed multiple surgeries can be required in the case of infection and the patient understands this as he has been through this before. he is agreeable to this plan. We had a discussion about the risks for infection worsening and should he worsen before the scheduled surgery, that he would need to come back to the hospital for immediate care. He expressed understanding of this. He has been instructed to see me in clinic monday and plan for surgery monday. again any worsening before then would require hosptialization and more immediate care. He expressed understanding. Also would have hospitalist involvement in care for hospitalizationi/diabetic/ medical management Time Spent With Patient Time with patient: 15-24 minutes
== END 2019-04-19 22:01 | disposition home or self-care (01) ==
PROVIDERS: Emergency Medicine; Emergency Provider Nurse Practitioner; Family Provider Internal Medicine
DX: E11.621 Type 2 diabetes mellitus with foot ulcer (principal); L97.426 Non-pressure chronic ulcer of left heel and midfoot with bone involvement without evidence of necrosis; Z79.4 Long term (current) use of insulin; M86.9 Osteomyelitis, unspecified
CPT/HCPCS: 36415; 73630; 73720; 80053; 83036; 83605; 84145; 85025; 85651; 86140; 87040; 87070; 87077; 87147; 87186; 87205; 96365; 96367; 99284; J0696

== ENCOUNTER 2019-04-26 11:25 | Observation (INO) | payer OTHER, SELFPAY ==
[2019-04-26] VITALS (11 sets, daily range): BP systolic 123–154; BP diastolic 65–102; PULSE 86–105; RESP 11–18; TEMP 36.3–36.9; O2SAT 92–100; BMI 33.4; BMI 29.9
--- NOTE | 2019-04-26 | DI.RAD.S_ITS ---
PROCEDURE: XR FOOT LT 2V INDICATIONS: LEFT 5TH TOE DEBRIEDMENT TECHNIQUE: A single operative view of the left foot was acquired. COMPARISON: [facility], MR, MR FOOT LT WO/W CON, 04/19/2019, 19:57. [facility], CR, XR FOOT LT MIN 3V, 04/19/2019, 14:18. FINDINGS: Single image demonstrates resection of the distal head of the fifth metatarsal and base and proximal shaft of the small toe proximal phalanx. There is a prominent soft tissue defect. IMPRESSION: Operative image demonstrates debridement with resection of the infected bone surrounding the small toe MTP joint. Dictated by: Andrew Cruz M.D. on 04/26/2019 at 14:46 Approved by: Andrew Cruz M.D. on 04/26/2019 at 14:48
--- NOTE | 2019-04-26 | PATH_ITS ---
[facility] Accession Number: [id number] . 01 Material submitted: . foot - LEFT FIFTH METATARSAL HEAD . 01 Diagnosis: Left Fifth Metatarsal Head, Excision: Articular bone with changes consistent with acute osteomyelitis. MRV 04/30/2019 1218 Local . 01 Electronically signed: . Radha White MD, Pathologist NPI- [id number] . 01 Gross description: . Received in formalin, labeled left fifth metatarsal head, is a piece of calle-white bone (1.5 x 1.2 x 0.7 cm) which is easily sliced with a scalpel. The resection margin is inked blue. Buttonhole Tacker perpendicular section is decalcified and submitted in cassette A1. ([id number]) /MRV 04/28/2019 2112 Local . 01 Pathologist provided ICD-10: E11.621 . 01 CPT . 412600, [id number] Performed at: [address], [place], [place] [id number] MD Nuno Cordon MD Phone: [phone]
--- NOTE | 2019-04-26 13:03 | PM.OP.1 ---
Operative Date/Time/Diagnoses Date of procedure: 04/26/19 Time of procedure: 13:30 Pre-op diagnosis: Left foot diabetic ulcer osteomyelitis 5th metatarsal Uncontrolled diabetes Post-op diagnosis: same Procedure & Clinicians Procedure: Excisional Debridement left foot diabetic ulcer, foot infection abscess. Excision metatarsal head, left 5th metatarsal Same procedure as scheduled: Yes Indications: Patient is a 38-year-old male with uncontrolled diabetes. He has had multiple foot infections in the past. He presents with osteomyelitis of the left 5th metatarsophalangeal joint. He has a plantar ulceration at the 5th MTP joint and now a dorsal abscess that is draining pus. Patient has been getting some wound care at home and oral antibiotics. He does have a culture demonstrates MRSA. He has been indicated for operative debridement. We discussed the has changes consistent with osteomyelitis of the MTP joint. We discussed a amputation of the partial 5th metatarsal and toe. The patient would like to try to keep the toe at this time. We discussed limited bone biopsy and excision of the 5th metatarsal head and thorough debridement of the plantar and dorsal wounds followed by treatment with IV antibiotics. The risks benefits and alternatives to the surgery were discussed with the patient in detail including risks for recurrence persistent infection need for additional surgery or amputation. The risks and benefits of the procedure have been discussed with the patient even opportunity to ask questions. The risks of surgery include but are not limited to infection, malunion, nonunion, persistence of pain, damage to nerves and blood vessels, posttraumatic arthritis, DVT, PE, cardiopulmonary complications and . The patient expressed a thorough understanding of the risks and benefits of surgery and has elected to proceed. Consent was signed in the office. The patient understands and agrees with the plan. He understands he will be hospitalized at the procedure to organized IV antibiotics and home health care or wound care. Surgeon: Tahmina Caban Click Yes if Unassisted: Yes Anesthesia Type: General Operative Notes Findings: Left 5th metatarsal osteomyelitis is a plantar ulceration approximately 1 x 1 cm with copious callus that probes directly to the plantar metatarsal head. Additionally there is dorsal ulceration from ruptured abscess again 1 x 1.5 cm dorsal above the 5th MTP joint. There is no blistering. There is faint cellulitis of the dorsum of the foot. No cellulitis above the ankle. Closure Type: not applicable Specimen(s): other (Tissue and bone sent for pathology and microbiology) Applied: other (Wet to dry dressing packing) Estimated Blood Loss (mL): 15 Blood products transfused: none Tourniquet time (min): 20 Procedure in detail: Patient was seen in the preoperative area the site of surgery marked informed consent confirmed. The patient was then brought back to the operating room by the anesthesia team. Patient was positioned supine on the operative table. All bony prominences well padded. Well-padded thigh tourniquet was placed. General anesthesia was administered. The left lower extremities prepped and draped in the standard sterile fashion using Betadine for the open wounds. Formal time-out procedure was performed confirming the patient's side and site of surgery administration of antibiotics was held until intraoperative cultures were taken but after this was done 1 g of vancomycin was started. The leg was elevated for gravity exsanguination the tourniquet raised on the thigh to 250 mL of mercury and stayed there for approximately 20 minutes. Attention was turned to the left foot there were 2 wounds a plantar ulceration and a dorsal abscess cavity. These were both lip to sized. The metatarsal head was directly visualized and palpable through the plantar wound. This was debrided and exposed. The bone was najera and soft consistent with osteomyelitis. T PS saw was used to excise the metatarsal head. Fluoro was brought in to confirm appropriate excision and the area was tested for any bony prominences which were removed using the rongeur and finally a rasp. The abscess cavity had organized and there was no gross purulence drainage but a great thick multiloculated material was debrided and sent for culture. Once the debridement was completed 6 L of saline through cysto tubing was used to irrigate the dorsal and plantar wounds through and through. The tourniquet was released. Hemostasis was achieved. The toes pinked up well and there was good bleeding tissue. Each of the wounds was partially closed using nylon suture with the remaining areas having more tension and left packed with wet to dry dressings. Wet to dry dressing gauze was placed followed by dry gauze ABD pad Kerlix and an Jag wrap. Patient was woken from anesthesia and taken to the recovery unit in good condition. There no immediate complications from this procedure. Complications: none Post-operative Condition: stable Disposition: PACU Plan for aftercare: Flatfoot her heel weight-bearing in the postop shoe. Admitted to the hospital for placement of PICC line and IV antibiotics. Based on previous culture anticipate 6 weeks IV vancomycin for MRSA. This may be adjusted pending intraoperative cultures. Will have hospitalist consult for diabetic control. Home health care for wet to dry dressing changes. Follow-up in [facility]opedic Clinic 2 weeks.
--- NOTE | 2019-04-26 13:04 | PM.PREOP ---
Pre-operative Note Interval Note History & Physical reviewed/Exam performed by Physician: Yes Changes to H&P: No
--- NOTE | 2019-04-26 13:43 | SUR.OPER ---
Supine on padded OR bed, head on pillow, arms secured on padded arm boards at <90 degrees abduction, legs uncrossed, safety belt at thigh, tape over blanket over lower legs.
[2019-04-26] MEDS: VANCOMYCIN 1,000 MG/200 ML PIGGYBACK 200 MG IV ×2 (13:56→21:44)
[2019-04-26] MEDS: LACTATED RINGERS 1,000 ML 42 ML IV (14:55)
--- NOTE | 2019-04-26 15:11 | SUR.PHASEI ---
Transferred patient to floor on inpatient bed in stable condition. All belongings returned to patient. Denies any pain at this time. Dressing remains clean, dry and intact. Hand-off to Bhargavi, receiving inpatient RN.
--- NOTE | 2019-04-26 15:16 | PM.PNPO.1 ---
Subjective Subjective Date Patient Seen: 04/26/19 Time Patient Seen: 15:16 Interval history: Postop day 0 left foot I and D, metatarsal head excision for osteomyelitis. Diagnosis: left diabetic foot ulcer with osteomyelitis E11.621 Procedure: 1. Excisional debridement left foot ulcer CPT code 14035 2. Complete excision 5th metatarsal head left foot CPT code 85781 Plan: 1. Weightbear as tolerated flatfoot or heel in the postoperative shoe 2. Vancomycin IV--will get PICC line--may be discharged home once IV home antibiotic infusions are set up--care management is aware and working on this this should likely be set up for discharge on Thursday 04/27--the instructions for orders are: IV vancomycin q.12 hours (dose will start and 1 g Q 12 hours and will be adjusted by the pharmacy here--May right orders for IV b.i.d. dosing based on [facility] pharmacy recommendations). Orders will also include weekly labs: These will be CBC with diff, basic metabolic panel, ESR, CRP 3. [facility] home health wound care has previously been involved with the patient and will continue to be involved with them. They are aware of patient's hospitalization. Social work to give them call at time of discharge. Instructions will be to continue their 3 times a week dressing changes. Patient and family will do dressing changes on the days home health care wound care does not see them. Dressing instructions are: B.i.d. wet-to-dry dressing changes (saline on a small amount of gauze packed into the plantar and dorsal wounds followed by dry gauze, Kerlix wrap, Jag wrap, postop shoe) 4. Follow-up in Orthopedic Clinic with Dr. Caban in 2 weeks. 5. May get small prescription of [place] for pain medication otherwise may take Tylenol or ibuprofen as needed for pain. 6. Diabetic medications and issues: Patient has hospitalist consult with Dr. Smith for diabetic needs. Appreciate hospitalist assistance. Exam Vital Signs (past 8 hours): - 04/26/19 12:33 04/26/19 14:27 04/26/19 14:32 Temperature 97.3 F L 97.8 F Pulse Rate 98 H 102 H 105 H Respiratory Rate 16 14 13 Blood Pressure 152/97 H 134/102 H 154/97 H Pulse Oximetry 100 94 94 04/26/19 14:37 04/26/19 14:52 Temperature Pulse Rate 100 H 98 H Respiratory Rate 13 12 Blood Pressure 144/95 H 131/83 Pulse Oximetry 92 98 Oxygen Delivery Method Room Air Assessment & Plan Post-op Postoperative Procedures: Procedures Operation Date: 04/26/19 13:15 Actual Procedures Side Surgeon p Incision and Drainage left foot abscess, debridment ulcer and bone biopsy left metatarsal head excision left fifth toe Tahmina Caban MD Plan: 1. Weightbear as tolerated flatfoot or heel in the postoperative shoe 2. Vancomycin IV--will get PICC line--may be discharged home once IV home antibiotic infusions are set up--care management is aware and working on this this should likely be set up for discharge on Thursday 04/27--the instructions for orders are: IV vancomycin q.12 hours (dose will start and 1 g Q 12 hours and will be adjusted by the pharmacy here--May right orders for IV b.i.d. dosing based on [facility] pharmacy recommendations). Orders will also include weekly labs: These will be CBC with diff, basic metabolic panel, ESR, CRP 3. [facility] home health wound care has previously been involved with the patient and will continue to be involved with them. They are aware of patient's hospitalization. Social work to give them call at time of discharge. Instructions will be to continue their 3 times a week dressing changes. Patient and family will do dressing changes on the days home health care wound care does not see them. Dressing instructions are: B.i.d. wet-to-dry dressing changes (saline on a small amount of gauze packed into the plantar and dorsal wounds followed by dry gauze, Kerlix wrap, Jag wrap, postop shoe) 4. Follow-up in Orthopedic Clinic with Dr. Caban in 2 weeks. Quality VTE Deep Vein Thrombosis/Pulmonary Embolism Present on Admission: No
--- NOTE | 2019-04-26 15:24 | CM.DPNOTE ---
Addendum entered by JANELL Campos 04/26/19 15:30: To clarify: Pt already receives wound care dressing changes three times weekly thru [facility] and will resume this service, he will have a RN visit Monday 2.. Original Note: According to Dr Caban: Pt will have PICC placed today and will need 6 weeks of IV vanc Q12. Pt has Casim[facility] and has reported he has used [facility] in the past. Pt also current /[facility] for wound care x3 weekly to change dressings on his chronic foot ulcer Placed call to [facility], gave referral. Dr Caban and pt are hopeful DC can happen Monday; pt has [facility] which will likely require a pre authorization. faxed clinical packet and awaiting CB Then placed call to Leo at [facility], discussed pt; he will not need a new order because he will be SCD/Obs (?) during this stay; Leo requests update upon DC date and DC summary. Following closely today/tomorrow for DC coordination JW
--- NOTE | 2019-04-26 15:41 | PC.NURSE ---
Day Shift- Report rec'd from JAMISON Cervantes in PACU at 1451 on current pt status. Pt arrived to unit room 218 at 1503 via bed. Pt Alert, conversing appropriately with staff. Pt oriented to call light, bed function. Aware to use call light for assist with OOB movement, any nausea, pain, urination, reposition, any issue pt expresses that needs staffs attention. Call light within reach. ABEL Cervantes from PACU gave Marina, Evening RN bedside report as well upon pt's arrival to unit. Pt denied any pain at that time.
[2019-04-26] MEDS: SODIUM CHLORIDE 0.9% 1,000 ML 84 ML IV (16:19)
[2019-04-26 16:26] LABS: Estimated Glomerular Filt Rate > 60.0 mL/min (>60)
--- NOTE | 2019-04-26 16:29 | PC.ADMIT ---
Pt drowsy and oriented. Denies pain, refused scheduled tylenol. Dressing to left foot c/d/i. Cap refill <3 seconds. Reports having own insulin and had dose pre/post op. IV to right forearm flushed well/infusing. Reports tingling sensation to left hand, radial pulse strong, hand warm/cap refill brisk. Shift RN notified. Oriented to room/call light. Bed alarm on. [address] Admission Note: The patient,Mahesh Dickerson,38 y/o, was given written information regarding hospital policies, unit procedures and contact persons. Patient's smoking status: Former smoker. Vital Signs - 8 hr 04/26/19 12:33 04/26/19 14:27 04/26/19 14:32 Temperature 97.3 F L 97.8 F Pulse Rate 98 H 102 H 105 H Respiratory Rate 16 14 13 Blood Pressure 152/97 H 134/102 H 154/97 H Pulse Oximetry 100 94 94 04/26/19 14:37 04/26/19 14:52 04/26/19 15:05 Temperature 98.0 F Pulse Rate 100 H 98 H 96 H Respiratory Rate 13 12 18 Blood Pressure 144/95 H 131/83 140/82 Pulse Oximetry 92 98 93 04/26/19 15:35 Temperature 97.8 F Pulse Rate 92 H Respiratory Rate 17 Blood Pressure 123/78 Pulse Oximetry 95
[2019-04-26 16:54] LABS: Albumin 3.2 g/dL (3.5-5.0); BUN Creatinine Ratio 23.6 (6-22); Blood Urea Nitrogen 26 mg/dL (9-20); Calcium 9.1 mg/dL (8.4-10.2); Carbon Dioxide 22 mmol/L (22-32); Chloride 105 mmol/L (98-107); Estimated Glomerular Filt Rate > 60.0 mL/min (>60); Glucose 226 mg/dL (70-100); HEMOLYSIS < 15 (0-50); Phosphorous 4.3 mg/dL (2.5-4.5); Sodium 135 mmol/L (137-145)
--- NOTE | 2019-04-26 17:36 | PM.CN ---
History of Present Illness Consult details Date Patient Seen: 04/26/19 Time Patient Seen: 17:36 Chief complaint: *OPB* [id number] Reason for consult: Diabetes management Requesting provider: Tahmina Caban Narrative: Mahesh Dickerson is a 38 year old male with PMH of IDDM and prior osteomyelitis, admitted after surgery with Dr. Kong for osteomyelitis and PICC placement as well as IV antibiotics. Medicine was consulted for assistance with diabetes management. Previous wound culture culture from 04/19 showed MRSA, and separate culture showed strep viridans. Intraoperative culture were taken from around his L 5th toe. He has had diabetes since age 20 roughly, and has been told that he is a type 1, type 1.5, and type 2 diabetic but it has never been fully confirmed. He said that he went in for a test to see if his pancreas was producing insulin a few years ago, and he thinks that it was. He currently controls his regimen right now with 45 units of NPH twice a day, and a rough sliding scale, as well as short-acting insulin which is roughly 3 units for every 45 g of carbohydrates. 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 He has also been advised that he should take a statin, and has been offered lisinopril in the past for renal protection as well. He denies any recent fevers, chills, abdominal pain or nausea after eating, chest pain, shortness of breath, lower extremity edema. His A1c 1 week ago was 10.9%. He has been on a variety of different regimens, and he is agreeable to returning to a longer-acting insulin from NPH during this admission. Meds Home Medications and Allergies Home Medications Medication Instructions Recorded Confirmed Type insulin NPH isoph U-100 human 45 unit SUBCUT BID 04/26/19 04/26/19 History [Humulin N NPH Insulin KwikPen] insulin lispro [Humalog KwikPen 10 unit SUBCUT BEDTIME 04/26/19 04/26/19 History Insulin] Allergies Allergy/AdvReac Type Severity Reaction Status Date / Time No Known Drug Allergies Allergy Unknown Verified 04/26/19 12:05 [NO KNOWN DRUG ALLERGIES] HAYFEVER Allergy Unknown Uncoded 06/21/17 12:29 Review of Systems Review of Systems Narrative: All other systems reviewed with the patient and are negative unless otherwise stated. Exam Vital Signs (past 8 hours): - 04/26/19 12:33 04/26/19 14:27 04/26/19 14:32 Temperature 97.3 F L 97.8 F Pulse Rate 98 H 102 H 105 H Respiratory Rate 16 14 13 Blood Pressure 152/97 H 134/102 H 154/97 H Pulse Oximetry 100 94 94 04/26/19 14:37 04/26/19 14:52 04/26/19 15:05 Temperature 98.0 F Pulse Rate 100 H 98 H 96 H Respiratory Rate 13 12 18 Blood Pressure 144/95 H 131/83 140/82 Pulse Oximetry 92 98 93 04/26/19 15:35 04/26/19 16:05 Temperature 97.8 F 98.0 F Pulse Rate 92 H 86 Respiratory Rate 17 16 Blood Pressure 123/78 131/81 Pulse Oximetry 95 97 Oxygen Delivery Method Room Air Narrative Exam Narrative: GENERAL APPEARANCE: Well developed, well nourished, in no acute distress. SKIN: Inspection of the skin reveals no rashes, ulcerations or petechiae. HEENT: The sclerae were anicteric and conjunctivae were pink and moist. Extraocular movements were intact and pupils were equal, round with normal accommodation. External inspection of the ears and nose showed no scars, lesions, or masses. Lips, teeth, and gums showed normal mucosa. The oral mucosa, hard and soft palate, tongue and posterior pharynx were unremarkable. NECK: Supple and symmetric. There was no thyroid enlargement, and no tenderness, or masses were felt. CHEST: Normal AP diameter and normal contour without any kyphoscoliosis. LUNGS: Auscultation of the lungs revealed no wheezes, rhonchi, or rales. CARDIOVASCULAR: There was a regular rate and rhythm without any murmurs, gallops, rubs. Peripheral pulses were 2+ and symmetric. ABDOMEN: Soft and nontender with normal bowel sounds. No ascites was noted. MUSCULOSKELETAL: There was no tenderness or effusions noted. Muscle strength and tone were normal. EXTREMITIES: No cyanosis, clubbing. Left lower extremity wrapped in dressings which are clear dry and intact. Toes are visible with onchomycosis and there is mild erythema around his left great toe without evidence of induration or warmth. NEUROLOGIC: Alert and oriented x 3. Normal affect. Gait was normal. Strength is +5/5 in the Upper Extremities and Lower Extremities Bilaterally. Sensation to touch was normal. Objective Labs Result Diagrams: 04/26/19 16:00 Labs: Laboratory Results - last 24 hr 04/26/19 04/26/19 16:00 16:00 Sodium 135 L Potassium 5.0 Chloride 105 Carbon Dioxide 22 BUN 26 H Creatinine 1.10 1.10 Estimated GFR > 60.0 > 60.0 BUN/Creatinine Ratio 23.6 H Glucose 226 H Calcium 9.1 Phosphorus 4.3 Albumin 3.2 L Assessment & Plan Assessment & Plan narrative: Mahesh Dickerson is a 38 year old male with PMH of IDDM and prior osteomyelitis, admitted after surgery with Dr. Kong for osteomyelitis and PICC placement as well as IV antibiotics. Medicine was consulted for assistance with diabetes management. 1. Diabetes, unclear type, with long-term insulin use - -extensive conversation with the patient and Education about types of insulin, carbohydrate management, and correction scales. He has had suboptimal control and experiences hypoglycemia approximately twice weekly. I believe this is due to stacking of NPH as well as short-acting insulin. Given this, his high A1c, current inpatient admission, and with patient agreement, elect to start on a new diabetes regimen at this time for better control. -patient was taking approximately 110 total units of insulin daily prior to admission. -will start with 70 units of Lantus at bedtime tonight, given his previous daily dose of 90 of NPH. -will start with 10 units of mealtime coverage before meals. Patient was advised not to add additional outside carbohydrates to help further titrate his insulin. -will increase to high dose insulin sliding scale -will continue to follow while admitted for diabetes management. He will need a long acting insulin prescription upon discharge. -patient to follow with PCP after discharge for further adjustment given active infection and antibiotics as his insulin needs may be adjusted. -patient was not interested in lisinopril or a statin medication at this time. Advised that if he remains hypertensive he may need to be started on lisinopril while admitted. 2. L 5th toe osteomyelitis - - Agree with current management as outlined in Dr. Kong's note. Continue vancomycin per pharmacy pending further intraoperative cultures. Code: Full Dispo: likely home with home health for outpatient IV antibiotics.
[2019-04-26] MEDS: INSULIN ASPART 100 UNIT/ML INSULN PEN SUBCUT ×2 (18:28→21:43)
[2019-04-26] MEDS: INSULIN GLARGINE 100 UNIT/ML 3ML PEN 70 UNIT SUBCUT (21:43)
--- NOTE | 2019-04-26 22:34 | PC.NURSE ---
Assumed care of pt at 1503 upon arrival from PACU. Eyad ROMAN completed admission. Oriented to room and call system. Hospitalist MD discussed Insulin and diabetes at length see his documentation for details. Significant other took pt's insulin pens home. Pt agreeable to hospital insulin regimen. CMS+, Drsgs with magdi wrap remain c/d/i. LLE elevated on pillows while in bed. Pt refused HS meds except insulin and vanco. Declined needing to void but did get up to attempt and voided 450 joceline urine. Enc po fluid intake. Steady on feet 1 pa w/fww. Refused SCD's. DVT risks advised. Contact isolation initiated this shift per Dr. Smith. Bed alarm on.
[2019-04-27 05:00] VITALS: BP 132/73; PULSE 88; RESP 16; TEMP 37; O2SAT 97
[2019-04-27] MEDS: VANCOMYCIN 1,000 MG/200 ML PIGGYBACK 200 MG IV (05:28)
[2019-04-27] MEDS: SODIUM CHLORIDE 0.9% 1,000 ML 84 ML IV (05:28)
[2019-04-27 05:54] LABS: Hematocrit 35.6 % (41-53); Hemoglobin 11.8 g/dL (13.5-17.5); Mean Corpuscular HGB Conc 33.1 % (30-36); Mean Corpuscular Hemoglobin 27.2 PG (26-34); Mean Corpuscular Volume 82.2 fL (80-100); Platelet Count 306 X10^3/uL (150-400); Red Blood Cell Count 4.32 X10^6/uL (4.5-5.9); Red Cell Distribution Width 14.2 % (11.6-14.8); White Blood Cell Count 12.1 X10^3/uL (4.5-11.0)
[2019-04-27 05:59] LABS: BUN Creatinine Ratio 20.8 (6-22); Blood Urea Nitrogen 25 mg/dL (9-20); Calcium 8.7 mg/dL (8.4-10.2); Carbon Dioxide 26 mmol/L (22-32); Chloride 105 mmol/L (98-107); Estimated Glomerular Filt Rate > 60.0 mL/min (>60); Glucose 126 mg/dL (70-100); HEMOLYSIS < 15 (0-50); Potassium 4.3 mmol/L (3.4-5.1); Sodium 137 mmol/L (137-145)
[2019-04-27 07:25] VITALS: BP 138/81; PULSE 91; RESP 16; TEMP 36.8; O2SAT 97
[2019-04-27 08:52] VITALS: O2SAT 98
--- NOTE | 2019-04-27 09:10 | PT.IIE ---
Current Diagnoses Type 2 diabetes mellitus with foot ulcer (04/26/19) Surgery Performed Operation Date: 04/26/19 13:15 Actual Procedures p Incision and Drainage left foot abscess, debridment ulcer and bone biopsy left metatarsal head excision left fifth toe - Tahmina Caban MD Surgical History (Last Updated 04/25/19 @ 08:36 by Jamee Taylor, RN) Hx of foot surgery (Acute) Medical History (Last Updated 04/25/19 @ 08:36 by Jamee Taylor RN) Cellulitis (Acute 08/16/16) Diabetes mellitus, insulin dependent (IDDM), uncontrolled (Acute) Diabetic foot ulcer (Acute) Diabetic ulcer of right foot (Acute) HLD (hyperlipidemia) (Acute) HTN (hypertension) (Acute) MRSA (methicillin resistant Staphylococcus aureus) (Acute) Physical Therapy Inpatient Evaluation/Re-Eval M1 PT/OT-IP Prior Functional Status Start: 04/27/19 12:58 Freq: NEEDED Status: Active Protocol: Document 04/27/19 09:10 AB (Rec: 04/27/19 13:13 AB [id number]) Medical Review Prior Functional Status Medical History Reviewed Yes Communication able to make needs known Mobility and Gait pt stated that he is independent with all mobilities and ambulation without AD Social History Household Members significant other,none, children Living Arrangements House Number of Floors (Floors) One Floor Number of Stairs To Enter/Railing? no steps to enter Home Environment Standard Height Toilet,Walk in Shower Home Equipment Crutches M2 PT-IP Current Condition Start: 04/27/19 12:58 Freq: NEEDED Status: Active Protocol: Document 04/27/19 09:10 AB (Rec: 04/27/19 13:13 AB [id number]) Physical Therapy Current Condition Current Condition Evaluation Date 04/27/19 Treatment Diagnosis L osteomyelitis 5th metatarsal s/p excision debridement; diff in walking Onset Date 04/26/2019 Weight Bearing Status Weight Bearing Status Weight Bear as Tolerated Allowed Weight Bearing Amount (enter % WBAT in post-op shoe with flat or #) (%) foot M3 PT-IP Subjective Start: 04/27/19 12:58 Freq: NEEDED Status: Active Protocol: Document 04/27/19 09:10 AB (Rec: 04/27/19 13:13 AB [id number]) Subjective Physical Therapy Visit Type Type Initial Evaluation Visit Start Time 09:10 Visit Stop Time 09:29 Total Visit Minutes 19 Number of APPLICATION PROCESSOR Visits 0 Physical Therapy Visit Comments Patient Comments pt hesistant to participate in PT and stated that he just wants to stay in bed. agreed to mobilize but refused to stay up Therapy Pain Assessment Pain Present Pain Present Denied Pain M4 PT-IP Mobility and Gait Start: 04/27/19 12:58 Freq: NEEDED Status: Active Protocol: Document 04/27/19 09:10 AB (Rec: 04/27/19 13:13 AB [id number]) PT-Bed Mobility Assessment Supine to Sit Supine to Sit Independent Sit to Supine Sit to Supine Independent PT-Transfer Assessment Sit to and From Stand Sit to and from Stand Independent Equipment Transfer Assistive Device None Orthotic/Prosthetic Devices or Brace: Yes Transfers Transfer Destination Toilet Transfer Technique ambulated without AD Transfer Ability Level of Assist Independent Comments Mobility Comments pt ambulated to the toilet without AD independent. has antalgic gait more due to post -op shoe on LLE making LE uneven. pt able to follow flatfoot WBAT on LLE and without LOB. pt refused to do more ambulation. Tinetti balance assessment completed: whic relates to low fall risk. Gait Assessment Gait Gait Assistance Required: Independent Distance (Feet) 20 Able to Maintain Weight Bearing Status Yes During Gait Assistive Devices Assistive Device None Orthotic/Prosthetic Devices or Brace: Yes Gait Deviations General Gait Pattern Antalgic Factors Limiting Gait Function Factors Limiting Gait Function Decreased Activity Tolerance PT-Balance Assessment Sitting Balance and Reactions Static Sitting Balance Ability Normal Dynamic Sitting Balance Ability Normal Standing Balance and Reactions Static Standing Balance Ability Good Dynamic Standing Balance Ability Good Device Used without AD Functional Assessments Functional Tests Tinetti Balance and Gait Assessment which relates to low fall risk M5 PT-IP Objective Assessments Start: 04/27/19 12:58 Freq: NEEDED Status: Active Protocol: Document 04/27/19 09:10 AB (Rec: 04/27/19 13:13 AB [id number]) Orientation Orientation/Cognition Level of Alertness Alert Orientation Name,Age,Birthday,Month,Date, Year,Day of Week,Place, Situation Language Function Ability No Deficits Noted Safety Awareness Understands Safety Issues Memory Description No Deficits Noted Gross Range of Motion Lower Extremity ROM Assessment Within Functional Limits Strength Lower Extremity Strength Assessment Within Functional Limits Coordination Assessment Gross Coordination Gross Coordination WNL Sensation Assessment Sensation Gross Sensation WNL Muscle Tone Muscle Tone WNL Yes M6 PT-IP Treatment Start: 04/27/19 12:58 Freq: NEEDED Status: Active Protocol: Document 04/27/19 09:10 AB (Rec: 04/27/19 13:13 AB [id number]) Physical Therapy Treatment Education Education Provided Weight Bearing Status,Safety M7 PT-IP Assessment and Plan Start: 04/27/19 12:58 Freq: NEEDED Status: Active Protocol: Document 04/27/19 09:10 AB (Rec: 04/27/19 13:13 AB [id number]) PT Summary Assessment and Plan Potential Rehabilitation Potential Good Status of Condition at Evaluation Stable Summary Assessment Summary PT eval completed and no further PT intervention indicated at this time. Pt is independent with mobilities and amulation without AD. able to follow WBAT flat foot on LLE. nurse informed regarding pt 's mobility and d /c PT plan. Nurse agreed. Frequency of Treatment Frequency Of Treatment Discharge Recommendations To Nursing Amount of Assist Needed Independent Discharge Recommendations PT Discharge Recommendations Home Transportation Needs at Discharge Private Vehicle
[2019-04-27] MEDS: INSULIN ASPART 100 UNIT/ML INSULN PEN 10 UNIT SUBCUT (10:18)
[2019-04-27 12:00] VITALS: BP 159/95; PULSE 93; RESP 16; TEMP 36.8; O2SAT 97
--- NOTE | 2019-04-27 12:53 | P.PN_ITS ---
Subjective Subjective Date Patient Seen: 04/27/19 Interval history: Mahesh Dickerson is a 38 year old male with past medical history significant for diabetes mellitus, unclear type, insulin using and poorly controlled, and prior osteomyelitis, admitted after surgery with Dr. Caban for osteomyelitis and PICC placement as well as IV antibiotics. Medicine was consulted for assistance with diabetic management. The patient is resting in bed comfortably. He has mild discomfort of his right lower extremity but reports this is manageable. He has no other complaints. He denies headache, shortness of breath, chest pain, abdominal pain, nausea, vomiting, fever, chills, dysuria, diarrhea or constipation. He is voiding and eliminating without difficulty. He is up ambulating without assistance. Exam Vital Signs (past 8 hours): - 04/27/19 05:00 04/27/19 07:25 04/27/19 08:52 Temperature 98.6 F 98.3 F Pulse Rate 88 91 H Respiratory Rate 16 16 Blood Pressure 132/73 138/81 Pulse Oximetry 97 97 98 Oxygen Delivery Method Room Air Oxygen Flow Rate 0 Narrative Exam Narrative: General: Middle-aged gentleman sitting in bed and in no acute distress, well- developed, well-nourished, appropriately interactive. HEENT: Normocephalic, atraumatic. External ears without defect. Pupils equal, round, and reactive to light. Anicteric sclerae, moist conjunctivae, and no lid lag. Oropharynx free of erythema and cobble stoning with moist mucosa. Neck: Supple with full range of motion. No lymphadenopathy or thyromegaly. Cardiovascular: Regular rate and rhythm without murmurs, rubs, or gallops appreciated. Pulmonary: Clear to auscultation bilaterally without crackles, wheezes, or rho nchi. Normal respiratory effort with no use of accessory muscles. Abdomen: Soft, bowel sounds present, nontender, nondistended. No hepatosplenomegaly or masses appreciated. Extremities: No clubbing, cyanosis, or edema. Left foot with dressing in place C/D/I with intact sensation and distal pulses. Skin: Normal temperature, turgor, and texture; no rash, ulcers, or subcutaneous nodules appreciated. Neurological: Cranial nerves grossly intact. Psychiatric: Normal mood and affect. Alert and oriented to person, place, and time. Objective Labs Result Diagrams: 04/27/19 05:25 04/27/19 05:25 Labs: Laboratory Results - last 24 hr 04/26/19 04/26/19 04/27/19 16:00 16:00 05:25 WBC 12.1 H RBC 4.32 L Hgb 11.8 L Hct 35.6 L MCV 82.2 MCH 27.2 MCHC 33.1 RDW 14.2 Plt Count 306 Sodium 135 L Potassium 5.0 Chloride 105 Carbon Dioxide 22 BUN 26 H Creatinine 1.10 1.10 Estimated GFR > 60.0 > 60.0 BUN/Creatinine Ratio 23.6 H Glucose 226 H Calcium 9.1 Phosphorus 4.3 Albumin 3.2 L 04/27/19 05:25 WBC RBC Hgb Hct MCV MCH MCHC RDW Plt Count Sodium 137 Potassium 4.3 Chloride 105 Carbon Dioxide 26 BUN 25 H Creatinine 1.20 Estimated GFR > 60.0 BUN/Creatinine Ratio 20.8 Glucose 126 H D Calcium 8.7 Phosphorus Albumin Assessment & Plan Assessment & Plan narrative: Mahesh Dickerson is a 38 year old male with past medical history significant for diabetes mellitus, unclear time, insulin using and poorly controlled, and prior osteomyelitis, admitted after surgery with Dr. Caban for osteomyelitis and PICC placement as well as IV antibiotics. Medicine was consulted for assistance with diabetic management. 1. Diabetes, unclear type, with long-term insulin use, chronic, present on admission. Stable. -Hemoglobin A1c 10.9% indicative of poor glycemic control. -Previous provider had an extensive conversation with the patient and provided education regarding types of insulin, carbohydrate management, and correctional scales. He has had suboptimal control and experiences hypoglycemia approximately twice weekly possibly due to stacking of NPH as well as short- acting insulin. Given this, his high A1c, current inpatient admission, and with patient agreement, elect to start on a new diabetic regimen for better control. Patient was taking approximately 110 total units of insulin daily prior to admission. -Continue Lantus 70 units daily at bedtime and NovoLog 10 units 3 times daily with meals which will be switched to Humalog 3 times daily with meals based on sliding scale at time of discharge, given his previous daily dose of 90 of NPH. -Continue ACHS blood glucose checks and high-dose correctional scale insulin. -Recommended patient keep blood glucose log with 4 measurements per day including one fasting and 3 additional measurements 2 hours after meals and take this to all his doctor's appointment so that his insulin regimen continue continue to be titrated to effect per PCP. -Patient was not interested in lisinopril or a statin medication at this time. Advised that if he remains hypertensive he may need to be started on lisinopril while admitted. 2. Left 5th toe osteomyelitis, acute on chronic, present on admission. Active. -Continue management as outlined in Dr. Caban's note. Continue vancomycin per pharmacy pending further intraoperative cultures. Thank you for this most interesting consult. We will sign off at this time as patient is to discharge today. If further assistance is needed please do not hesitate to contact us. Quality VTE Deep Vein Thrombosis/Pulmonary Embolism Present on Admission: No
--- NOTE | 2019-04-27 13:52 | DI.RAD.S_ITS ---
PROCEDURE: XR CHEST 1V INDICATIONS: picc TECHNIQUE: One view of the chest was acquired. COMPARISON: [facility], CHEST 2 VIEW, 03/21/2016, 10:35. [facility], , CHEST FOR PICC PLACEMENT, 08/16/2016, 15:55. FINDINGS: Surgical changes and devices: A left sided PICC line is seen, with the tip overlying the inferior aspect of the superior vena cava, approximately 1.5 cm above the cavoatrial junction. Lungs and pleura: Lungs are clear. No pleural effusions or pneumothorax. Mediastinum: Mediastinal contours appear normal. Heart size is normal. Bones and chest wall: No suspicious bony lesions. Overlying soft tissues appear unremarkable. IMPRESSION: The tip of the left-sided PICC line is seen overlying the inferior aspect of the superior vena cava, approximately 1.5 cm above the cavoatrial junction. Dictated by: Sage Moeller M.D. on 04/27/2019 at 13:23 Approved by: Sage Moeller M.D. on 04/27/2019 at 13:24
[2019-04-27 14:04] LABS: Vancomycin Trough 11.5 ug/mL (10-20)
[2019-04-27] MEDS: VANCOMYCIN TROUGH 1 REQUEST MISC (14:47)
[2019-04-27] MEDS: VANCOMYCIN 1,250 MG in SODIUM CHLORIDE 0.9% 250 ML IV (14:49)
--- NOTE | 2019-04-27 15:31 | PM.PNPO.1 ---
Subjective Subjective Date Patient Seen: 04/27/19 Time Patient Seen: 15:31 Interval history: POD #1 left foot I and D, metatarsal head excision for osteomyelitis with Dr. Caban. Patient received PICC line this afternoon. Pharmacy adjusted dosing. Patient aware of his restrictions. Family aware of dressing changes. He was provided a [facility] prescription in case he develops severe pain. He plans on using Tylenol and ibuprofen as needed. Exam Vital Signs (past 8 hours): - 04/27/19 08:52 04/27/19 12:00 Temperature 98.3 F Pulse Rate 93 H Respiratory Rate 16 Blood Pressure 159/95 H Pulse Oximetry 98 97 Oxygen Delivery Method Room Air Oxygen Flow Rate 0 Narrative Exam Narrative: Patient lying in bed no acute distress. Left leg dressing is CDI. is aware of her role in daily dressing changes until home health on Monday. Patient is able to actively wiggle his toes. Brisk capillary refill. Objective Labs Result Diagrams: 04/27/19 05:25 04/27/19 05:25 Labs: Laboratory Results - last 24 hr 04/26/19 04/26/19 04/27/19 16:00 16:00 05:25 WBC 12.1 H RBC 4.32 L Hgb 11.8 L Hct 35.6 L MCV 82.2 MCH 27.2 MCHC 33.1 RDW 14.2 Plt Count 306 Sodium 135 L Potassium 5.0 Chloride 105 Carbon Dioxide 22 BUN 26 H Creatinine 1.10 1.10 Estimated GFR > 60.0 > 60.0 BUN/Creatinine Ratio 23.6 H Glucose 226 H Calcium 9.1 Phosphorus 4.3 Albumin 3.2 L Vancomycin Trough 04/27/19 04/27/19 05:25 13:30 WBC RBC Hgb Hct MCV MCH MCHC RDW Plt Count Sodium 137 Potassium 4.3 Chloride 105 Carbon Dioxide 26 BUN 25 H Creatinine 1.20 Estimated GFR > 60.0 BUN/Creatinine Ratio 20.8 Glucose 126 H D Calcium 8.7 Phosphorus Albumin Vancomycin Trough 11.5 Assessment & Plan Post-op Postoperative Procedures: Procedures Operation Date: 04/26/19 13:15 Actual Procedures Side Surgeon p Incision and Drainage left foot abscess, debridment ulcer and bone biopsy left metatarsal head excision left fifth toe Tahmina Caban MD Continue Dr. Caban's Plan: 1. Weightbear as tolerated flatfoot or heel in the postoperative shoe 2. Vancomycin IV--will get PICC line--may be discharged home once IV home antibiotic infusions are set up--care management is aware and working on this this should likely be set up for discharge on Thursday 04/27--the instructions for orders are: Trough drawn at 14:30. Dosing adjusted by pharmacy to 1250 mg Q8HRs. They are requesting next trough be drawn at 14:30 and adjust dosing as necessary. 3. Patient will need weekly labs: These will be CBC with diff, basic metabolic panel, ESR, CRP 4. [facility] home health wound care has previously been involved with the patient and will continue to be involved with them. They are aware of patient's hospitalization. Social work to give them call at time of discharge. Instructions will be to continue their 3 times a week dressing changes. Patient and family will do dressing changes on the days home health care wound care does not see them. Dressing instructions are: B.i.d. wet-to-dry dressing changes (saline on a small amount of gauze packed into the plantar and dorsal wounds followed by dry gauze, Kerlix wrap, Jag wrap, postop shoe) 5. Follow-up [facility] with Dr. Caban in 2 weeks. 6. Diabetic medications and issues: Patient has hospitalist consult with Dr. Covarrubias for diabetic needs, and prescriptions sent to pharmacy. Appreciate hospitalist assistance. Quality VTE Deep Vein Thrombosis/Pulmonary Embolism Present on Admission: No
--- NOTE | 2019-04-27 15:55 | CM.DPNOTE ---
Addendum entered by JANELL Campos 04/27/19 16:01: Pt is covered for infusion services 100% because he met his yearly deductible. Original Note: DC Note: Coordinated details of pt's DCP w/[facility] today; pt aware and agreeable to plan. Plan as follows: DC today, home w/family via pov. PICC inserted this afternoon and pt will stay for his last Vanco dosing before returning home. [facility] will visit pt at his home Monday AM for teach and suuplies, Vanco trough needed tomorrow at 1430 per Ortho PA. [facility] will see pt Monday at home for wound dressing change and management of PICC Faxed PICC insertion record, Vanco Rx and DC prog note to [facility]. Faxed PICC insertion, DC prog note and Dr Caban's last note to [facility] BOWERS. ANDREAS
[2019-04-27 16:09] VITALS: BP 134/83; PULSE 83; RESP 15; TEMP 36.8; O2SAT 98
--- NOTE | 2019-04-27 16:46 | PC.NURSE ---
Evening Shift/Discharge Note- Candy d/c'ed home. Discharge instructions and educations reviewed with patient and signed. Patient packed personal belongings and got dressed. IV line removed andbandaid applied. Patient left via wheelchair to proivate car with all persoanl items at 1645.
== END 2019-04-27 16:45 | disposition home or self-care (01) ==
LOC: OR 11:28 → AC 11:31
PROVIDERS: Internal Medicine; Admitting Provider Orthopaedic Surgery Foot and Ankle Surgery; Family Provider Internal Medicine; Referring Provider Orthopaedic Surgery Foot and Ankle Surgery; Visit Provider Orthopaedic Surgery Foot and Ankle Surgery
PROC: (CPT 28113; principal; 2019-04-26 13:15)
DX: M86.172 Other acute osteomyelitis, left ankle and foot (principal); E11.621 Type 2 diabetes mellitus with foot ulcer; Z79.4 Long term (current) use of insulin; E11.69 Type 2 diabetes mellitus with other specified complication; L03.032 Cellulitis of left toe
CPT/HCPCS: 28113; 11044; 36415; 36569; 71045; 73620; 76000; 80048; 80069; 80202; 82565; 82962; 85027; 87070; 87075; 87077; 87147; 87186; 87205; 97161; G0378; J1885; J2250; J2405; J2704; J3010

== ENCOUNTER → 2019-05-31 11:06 | Outpatient (ROUT) | payer OTHER, SELFPAY ==
[2019-04-26 15:58] VITALS: BMI 29.9
[2019-05-31 11:18] LABS: Estimated Glomerular Filt Rate 59.6 mL/min (>60)
== END ==
PROVIDERS: Family Provider Internal Medicine; Visit Provider Orthopaedic Surgery Foot and Ankle Surgery
DX: E11.621 Type 2 diabetes mellitus with foot ulcer (principal)
CPT/HCPCS: 80202; 82565

== ENCOUNTER → 2019-08-10 12:29 | Outpatient (CLI) | payer OTHER, SELFPAY ==
[2019-04-26 15:58] VITALS: BMI 29.9
[2019-08-10 13:28] LABS: BUN Creatinine Ratio 20.6 (6-22); Blood Urea Nitrogen 26 mg/dL (9-20); C-Reactive Protein Quant < 0.5 mg/dL (<1.0); Carbon Dioxide 29 mmol/L (22-32); Chloride 103 mmol/L (98-107); Estimated Glomerular Filt Rate > 60.0 mL/min (>60); Glucose 286 mg/dL (70-100); HEMOLYSIS 15 (0-50); Potassium 4.6 mmol/L (3.4-5.1); Sodium 138 mmol/L (137-145)
[2019-08-10 14:07] LABS: Erythrocyte Sedimentation Rate 6 MM/HR (0-15)
== END ==
PROVIDERS: Family Provider Internal Medicine; Referring Provider Orthopaedic Surgery Foot and Ankle Surgery; Visit Provider Orthopaedic Surgery Foot and Ankle Surgery
DX: E11.628 Type 2 diabetes mellitus with other skin complications (principal)
CPT/HCPCS: 36415; 80048; 85651; 86140

== ENCOUNTER 2022-02-23 10:18 | Emergency (ER) | payer OTHER, SELFPAY ==
[2019-04-26 15:58] VITALS: BMI 29.9
--- NOTE | 2022-02-23 11:12 | DI.RAD.S_ITS ---
PROCEDURE: XR FOOT LT MIN 3V INDICATIONS: painful chronic ulcers, osteo? TECHNIQUE: Three views of the foot were acquired. COMPARISON: [facility], CR, XR FOOT LT MIN 3V, 04/19/2019, 14:18. [facility], CR, XR FOOT LT 2V, 04/26/2019, 13:56. FINDINGS: Bones: Postsurgical changes are seen from prior resection of the 5th metatarsal head. Subtle osseous irregularity is seen at the tip of the 5th metatarsal adjacent to the resection site. There is cortical destruction and osseous fragmentation within the 1st distal phalanx that is suspicious for osteomyelitis. Mild scattered degenerative changes in the midfoot and hindfoot. Tiny posterior calcaneal enthesophyte. Soft tissues: Soft tissue ulceration is seen at the lateral aspect of the forefoot. Soft tissue edema is seen throughout the forefoot. IMPRESSION: 1. Cortical destruction and osteolysis with mild fragmentation of the 1st distal phalanx are highly suspicious for osteomyelitis, especially if there is an overlying skin ulcer. 2. Postsurgical changes from prior 5th metatarsal head resection. Possible minimal osteolysis at the distal 5th metatarsal is nonspecific but could represent mild or early osteomyelitis. Mild osseous irregularity at the 5th proximal phalangeal base is also suspicious for osteomyelitis. Adjacent skin ulceration is seen at the lateral forefoot. Approved by: Brett Natarajan M.D. on 02/23/2022 at 11:47
--- NOTE | 2022-02-23 11:16 | ED.EXTPRO ---
HPI - Extremity Problem General Chief complaint: Wound/Laceration Stated complaint: 2 ulcers on LT foot MRSA on big toe Time Seen by Provider: 02/23/22 10:35 History of Present Illness HPI Narrative: 41-year-old male former smoker with history of diabetes and chronic ulcerations on his left foot presents wanting to establish new care. He had previously had evaluations and was managed down closer to [place] but just moved to the area yesterday. He states he has been having trouble with his left foot for many months if not years. He states he is had as many as 5 surgeries on his foot. It is chronically swollen and ulcers noted on the lateral foot and under his great toe are essentially unchanged. They do frequently drain foul-smelling material. He most recently was seen at a [facility] [place] in [place] and had been initially on Bactrim and then was switched to clindamycin recently. Denies fever, chills nor nausea or vomiting. He is not dizzy nor weak or lightheaded. Related Data Previous Rx's Medication Instructions Recorded acetaminophen 325 mg tablet 975 mg PO TID #60 tabs 04/27/19 aspirin 81 mg tablet,delayed 81 mg PO BID #30 tabs 04/27/19 release hydrocodone 5 mg-acetaminophen 325 1 tab PO Q4-6H PRN pain #30 tabs 20 mg tablet (Alex) insulin glargine 100 unit/mL (3 70 unit (0.7 mL) SUBCUT 2100 #15 mL 04/27/19 mL) subcutaneous pen (Lantus Solostar U-100 Insulin) insulin lispro 100 unit/mL 10 unit (0.1 mL) SUBCUT .TIDAC #15 20 subcutaneous pen (Humalog KwikPen mL (U-100) Insulin) vancomycin 1.25 gram/250 mL in 0.9 1.25 gram (250 mL) IV Q8H #6,000 mL 04/27/ % sodium chloride intravenous Allergies Allergy/AdvReac Type Severity Reaction Status Date / Time No Known Drug Allergies Allergy Unknown Verified 02/23/22 11:17 [NO KNOWN DRUG ALLERGIES] HAYFEVER Allergy Unknown Uncoded 06/21/17 12:29 Review of Systems Review of Systems Narrative: GENERAL: See HPI HEENT: Denies sinus pain, ear pain, sore throat, difficulty swallowing, dizziness. RESPIRATORY: Denies dyspnea, cough, wheezing, hemoptysis, sputum. CARDIOVASCULAR: Denies chest pain, palpitations, orthopnea, edema, GASTROINTESTINAL: Denies nausea, vomiting, abdominal pain, diarrhea, constipation, melena. : Denies dysuria, frequency, incontinence, hematuria, urinary retention. MUSCULOSKELETAL: See HPI SKIN: See HPI NEUROLOGIC: Denies weakness, headache, numbness, change in speech, confusion, seizures, incoordination. PSYCHIATRIC: No concerning psychosocial issues. 12 point review of systems is negative except for those stated above Patient History Medical History Cellulitis (08/16/16) Diabetes mellitus, insulin dependent (IDDM), uncontrolled Diabetic foot ulcer Diabetic ulcer of right foot HLD (hyperlipidemia) HTN (hypertension) MRSA (methicillin resistant Staphylococcus aureus) Surgical History Hx of foot surgery Social History household members: significant other, children and none Smoking Status: Former smoker alcohol intake: never Smoking Status: Former smoker alcohol intake frequency: other Substance Use Type: marijuana Exam Narrative Exam Narrative: GENERAL: [41] year old patient appears stated age. Well-developed patient, in mild distress. HEAD: Atraumatic. Normocephalic. EYES: Pupils equal round and reactive. Extraocular motions intact. No scleral icterus. No injection or drainage. ENT: Nose without bleeding, purulent drainage. Throat without erythema, tonsillar hypertrophy or exudate. Airway patent. NECK: Trachea midline. Non tender CARDIOVASCULAR: Regular rate and rhythm without murmurs, gallops, or rubs. RESPIRATORY: Clear to auscultation. Breath sounds equal bilaterally. No wheezes, rales, or rhonchi. GASTROINTESTINAL: Abdomen soft, non-tender, nondistended. EXTREMITIES: Left great toe swollen and erythematous, there is an ulcer with some drainage on the plantar surface of the left great toe, there is no pain, no bone exposure, culture obtained. No obviously necrotic tissue or subcu emphysema, another chronic ulcer without obvious drainage noted and left lateral foot overlying the plantar aspect of the 5th metatarsal. BACK: Nontender without deformity or crepitance. No flank tenderness. NEURO: AOx3. SKIN: No rash or erythema of visible areas Initial Vital Signs Initial Vital Signs: Vital Signs Temperature 98.4 F 02/23/22 11:17 Pulse Rate 100 H 02/23/22 11:17 Respiratory Rate 105 H 02/23/22 11:17 Blood Pressure 142/85 H 02/23/22 11:17 Pulse Oximetry 99 02/23/22 11:17 Oxygen Delivery Method 02/23/22 11:17 Course Orders Ordered: ED Orders 02/23/22 11:12 XR foot LT min 3V Stat 02/23/22 11:19 Wound Culture and Gram Stain Stat 02/23/22 12:40 BMP [Basic Metabolic Panel] Stat CBC Auto Diff [Complete Blood Count AUTO DIFF] Stat CRP [C-Reactive Protein Quant] Stat ESR [Erythrocyte Sedimentation Rate] Stat Vital Signs Vital signs: Vital Signs - 8 hr 02/23/22 11:17 Temperature 98.4 F Pulse Rate 100 H Respiratory Rate 105 H Blood Pressure 142/85 H Pulse Oximetry 99 Oxygen Delivery Method Room Air MDM - Extremity (Nontraumatic) Imaging Data Extremity x-ray #1: Radiologist's Impression: Mahesh Dickerson??41??M??1980 ? Allergy/Adv: No Known Drug Allergies, [HAYFEVER] (More??) Close Foot X-Ray (Signed) Brett Natarajan - 02/23/22 Chest X-Ray (Signed) Sage Moeller - 04/27/19 Foot X-Ray (Signed) Andrew Cruz - 04/26/19 Foot MRI (Signed) Sage Moeller - 04/19/19 Foot X-Ray (Signed) James Johnson - 04/19/19 Launch?[address] [address] XRay Report Signed Patient: Mahesh Dickerson MR#: [id number] : 1980 Acct:[id number] Age/Sex: 41 / M Date of Service: 02/23/22 Loc: ED Accession Number: [id number] ?? Procedure: XR foot LT min 3V Ordering Provider: Luis Armando Tinajero D.O. PROCEDURE:? XR FOOT LT MIN 3V ? INDICATIONS:? painful chronic ulcers, osteo? ? TECHNIQUE:? Three views of the foot were acquired.? ? COMPARISON:? [facility], CR, XR FOOT LT MIN 3V, 04/19/2019, 14:18.? [facility], CR, XR FOOT LT 2V, 04/26/2019, 13:56. ? FINDINGS:? ? Bones:? Postsurgical changes are seen from prior resection of the 5th metatarsal head.? Subtle osseous irregularity is seen at the tip of the 5th metatarsal adjacent to the resection site.? There is cortical destruction and osseous fragmentation within the 1st distal phalanx that is suspicious for osteomyelitis.? Mild scattered degenerative changes in the midfoot and hindfoot.? Tiny posterior calcaneal enthesophyte. ? Soft tissues:? Soft tissue ulceration is seen at the lateral aspect of the forefoot.? Soft tissue edema is seen throughout the forefoot. ? IMPRESSION:? 1. Cortical destruction and osteolysis with mild fragmentation of the 1st distal phalanx are highly suspicious for osteomyelitis, especially if there is an overlying skin ulcer. 2. Postsurgical changes from prior 5th metatarsal head resection.? Possible minimal osteolysis at the distal 5th metatarsal is nonspecific but could represent mild or early osteomyelitis.? Mild osseous irregularity at the 5th proximal phalangeal base is also suspicious for osteomyelitis.? Adjacent skin ulceration is seen at the lateral forefoot. ? ? ? Approved by: Brett Natarajan M.D. on 02/23/2022 at 11:47? [facility] Narrative Medical decision making narrative: 41-year-old male with history of diabetes and chronic foot infections presents for evaluation, stating he wants to establish new care locally given his recent move. He has no systemic findings to suggest sepsis. He had recently been on oral antibiotics (Bactrim) but was switched to clindamycin. Physical exam and x-ray are consistent with osteomyelitis though it would appear to be chronic and, as stated there are no signs of sepsis. Labs ordered after consultation with on-call orthopedist, discussed inpatient versus outpatient with patient and he states that he is unable to come into the hospital at this point in time and would prefer to try to manage this as an outpatient. Return precautions discussed and questions answered to his apparent satisfaction Discharge Plan Departure Patient Disposition: Home Clinical Impression: Diabetic foot ulcer Instructions: DI for Osteomyelitis Activity Restrictions/Additional Instructions: *You have been diagnosed with [ left great toe osteomyelitis] *What to do: *Please continue to take your regular medications as directed. *As we discussed, I have included contact information for Dr. Caban at [facility] as well as the wound care clinic. Please call later today and let them know you were seen in the emergency department and we would like you seen in follow-up. *Return to Emergency Department if you should have any new, worsening or concerning symptoms, such as [fever greater than 101 F, shaking chills, worsening pain, persistent vomiting or other bothersome symptoms] Prescriptions: No Action Lantus Solostar U-100 Insulin 100 unit/mL (3 mL) Insulin Pen 70 unit subcut 2100 Qty: 15 0RF insulin lispro [Humalog KwikPen Insulin] 100 unit/mL Insulin Pen 10 unit SUBCUT .TIDAC Qty: 15 0RF Rx Instructions: Based on Sliding Scale acetaminophen 325 mg Tablet 975 mg PO TID Qty: 60 0RF aspirin 81 mg Tablet,Delayed Release (Dr/Ec) 81 mg PO BID Qty: 30 0RF hydrocodone-acetaminophen [Alex] 5-325 mg tablet 1 tab PO Q4-6H PRN (Reason: pain) Qty: 30 0RF Rx Instructions: 1 tab po every 4-6 hours as needed for severe pain. exempt. post op pain. vancomycin in 0.9 % sodium chl 1.25 gram/250 mL solution 1.25 gram IV Q8H Qty: 6000 0RF Referrals: Tahmina Caban MD [Physician] - Jesse Nur MD [Non-Staff] - Miscellaneous,MD Alan [Primary Care Provider] -
[2022-02-23 11:17] VITALS: BP 142/85; PULSE 100; RESP 15; TEMP 36.9; O2SAT 99; BMI 26.7
[2022-02-23 13:03] LABS: Add Manual Diff / Slide Review NO; Basophils Absolute Auto 100 /uL (0-100); Basophils Percent Auto 1.2 % (0-2); Eosinophils Absolute Auto 200 /uL (0-450); Eosinophils Percent Auto 2.5 % (2-4); Hematocrit 35.1 % (41-53); Hemoglobin 11.7 g/dL (13.5-17.5); Lymphocytes Absolute Auto 1800 /uL (1100-4500); Lymphocytes Percent Auto 19.6 % (25-40); Mean Corpuscular HGB Conc 33.3 % (30-36); Mean Corpuscular Hemoglobin 27.3 PG (26-34); Mean Corpuscular Volume 82.2 fL (80-100); Monocytes Absolute Auto 800 /uL (0-900); Neutrophils Absolute Auto 6100 /uL (1500-7000); Neutrophils Percent Auto 67.7 % (50-75); Platelet Count 326 X10^3/uL (150-400); Red Blood Cell Count 4.27 X10^6/uL (4.5-5.9)
[2022-02-23 13:20] LABS: Erythrocyte Sedimentation Rate 107 MM/HR (0-15)
[2022-02-23 13:27] VITALS: BP 142/85; PULSE 97; RESP 20; O2SAT 99
[2022-02-23 13:51] LABS: BUN Creatinine Ratio 20.8 (6-22); Blood Urea Nitrogen 22 mg/dL (9-20); C-Reactive Protein Quant 6.7 mg/dL (<1.0); Calcium 8.7 mg/dL (8.4-10.2); Carbon Dioxide 26 mmol/L (22-32); Chloride 100 mmol/L (98-107); Estimated Glomerular Filt Rate > 60 mL/min (>60); Glucose 150 mg/dL (70-100); HEMOLYSIS < 15 (0-50); Potassium 4.3 mmol/L (3.4-5.1); Sodium 135 mmol/L (137-145)
== END 2022-02-23 13:28 | disposition home or self-care (01) ==
PROVIDERS: Emergency Provider Emergency Medicine; Family Provider Internal Medicine; PCP Physician Assistant Medical
DX: E11.621 Type 2 diabetes mellitus with foot ulcer (principal)
CPT/HCPCS: 73630; 80048; 85025; 85651; 86140; 87070; 87077; 87147; 87186; 87205; 99281; 99284

== ENCOUNTER 2022-03-25 14:29 | Day surgery (SDC) | payer OTHER, SELFPAY ==
[2019-04-26 15:58] VITALS: BMI 29.9
[2022-03-25] VITALS (8 sets, daily range): BP systolic 102–142; BP diastolic 60–102; PULSE 94–102; RESP 11–19; TEMP 36.4–36.7; O2SAT 94–100; BMI 27.3
--- NOTE | 2022-03-25 | PATH_ITS ---
[facility] Accession Number: [id number] No. of containers..01 Tissue . 01 Material submitted: . toe - LEFT GREAT TOE . 01 Diagnosis: Left Great Toe, Amputation: Cutaneous ulcer with dense mixed neutrophilic and chronic inflammation and fibrosis. Bone with evidence of remodeling, interspersed marrow fibrosis, and neutrophilic inflammation, consistent with acute osteomyelitis. Skin and subcutaneous en face margin with fibrosis and scattered mixed inflammation. Bone en face margin with marrow fibrosis and mild chronic inflammation. MRV 03/28/2022 1345 Local . 01 Electronically signed: . Marques Dooley MD, Dermatopathologist NPI- [id number] . 01 Gross description: . The specimen is received in formalin, labeled with the patient's name, , and left great toe, and consists of an amputated digit measuring 5.2 cm in length by 3.8 cm in diameter with a small amount of bone extending 2.7 cm from the soft tissue margin. A yellow, thickened nail bed is identified. The cut surface is calle and wrinkled and significant for an ulcerated area located at the tip of the digit measuring 2.8 x 2.3 cm with a small amount of soft tissue identified at the base of the ulcer. No additional lesions are identified. The soft tissue margins are inked blue. The bone margin is inked orange. Sectioning reveals calle to red soft tissue with red to calle osseous tissue that is relatively easy to section with a scalpel. Bsw sections are submitted as follows: A1: Bsw soft tissue margin en face to include area nearest lesion. A2: Bone margin en face. A3: Longitudinal section of ulcer with underlying bone. Submitted for decalcification. ([id number]) /ARISTEO 03/26/2022 1651 Local . 01 Pathologist provided ICD-10: E11.621, M86.9 . 01 CPT . 694273, [id number] Specimen Comment: A courtesy copy of this report has been sent to [phone] Performed at: [address] [id number] MD Nuno Cordon MD Phone: [phone]
[2022-03-25] MEDS: LACTATED RINGERS 1,000 ML 42 ML IV ×2 (14:49→17:54)
[2022-03-25 15:01] LABS: COVID19 -Nasal RAPID Negative (Negative)
[2022-03-25 15:54] LABS: Add Manual Diff / Slide Review NO; Basophils Absolute Auto 100 /uL (0-100); Basophils Percent Auto 1.1 % (0-2); Eosinophils Absolute Auto 200 /uL (0-450); Eosinophils Percent Auto 2.6 % (2-4); Hematocrit 44.5 % (41-53); Hemoglobin 14.7 g/dL (13.5-17.5); Lymphocytes Absolute Auto 1700 /uL (1100-4500); Lymphocytes Percent Auto 24.1 % (25-40); Mean Corpuscular HGB Conc 33.1 % (30-36); Mean Corpuscular Hemoglobin 27.4 PG (26-34); Monocytes Absolute Auto 700 /uL (0-900); Monocytes Percent Auto 9.6 % (3-14); Neutrophils Absolute Auto 4500 /uL (1500-7000); Neutrophils Percent Auto 62.6 % (50-75); Platelet Count 239 X10^3/uL (150-400); Red Blood Cell Count 5.36 X10^6/uL (4.5-5.9); Red Cell Distribution Width 15.2 % (11.6-14.8); White Blood Cell Count 7.1 X10^3/uL (4.5-11.0)
[2022-03-25 16:07] LABS: Alanine Aminotransferase 32 IU/L (<50); Alkaline Phosphatase 61 U/L (38-126); Aspartate Aminotransferase 20 IU/L (17-59); BUN Creatinine Ratio 22.2 (6-22); Bilirubin Total 0.7 mg/dL (0.2-1.3); Blood Urea Nitrogen 24 mg/dL (9-20); C-Reactive Protein Quant < 0.5 mg/dL (<1.0); Carbon Dioxide 26 mmol/L (22-32); Chloride 96 mmol/L (98-107); Estimated Glomerular Filt Rate > 60 mL/min (>60); Glucose 326 mg/dL (70-100); HEMOLYSIS < 15 (0-50); Potassium 4.4 mmol/L (3.4-5.1); Sodium 133 mmol/L (137-145); Total Protein 8.2 g/dL (6.3-8.2)
[2022-03-25] MEDS: INSULIN REGULAR 100 UNIT/ML 3 ML VIAL 7 UNIT SUBCUT (16:13)
[2022-03-25 16:21] LABS: Erythrocyte Sedimentation Rate 18 MM/HR (0-15)
--- NOTE | 2022-03-25 16:49 | PM.PREOP ---
Pre-operative Note Interval Note History & Physical reviewed/Exam performed by Physician: Yes Changes to H&P: No
[2022-03-25] MEDS: CEFAZOLIN 2 GM/100 ML PREMIX 100 ML IV (17:00)
--- NOTE | 2022-03-25 17:09 | SUR.OPER ---
Supine on padded OR bed, head on pillow, arms secured on padded arm boards at <90 degrees abduction, legs uncrossed, safety belt at waist, tape over blanket over lower right leg, gel bump under left hip, left leg draped free
[2022-03-25 17:29] LABS: Globulin 4.2 g/dL (1.7-4.1)
[2022-03-25] MEDS: BUPIVACAINE 0.5% W/ EPI (PF) 30 ML VIAL INJ (17:34)
[2022-03-25] MEDS: VANCOMYCIN 1,000 MG VIAL 1000 MG INTRA-ARTI (17:38)
--- NOTE | 2022-03-25 19:03 | P.OP_ITS ---
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 He had a previous 5th metatarsal head excision. MRI with and without contrast recently demonstrates signal within the proximal phalanx of the great toe and within the remaining 5th metatarsal shaft. The patient has a draining ulcer at the distal aspect of the great toe and plantar at the 5th metatarsal shaft remnants site with edema involving the proximal phalanx of the 5th toe. Was indicated for partial amputation left great toe ray amputation left 5th toe wound debridement and closure, coverage. The risks and benefits of the procedure have been discussed with the patient and given the opportunity to ask questions. The risks of surgery include but are not limited to persistent infection, wound healing problems, need for additional procedures, persistence of pain, damage to nerves and blood vessels, DVT, PE, cardiopulmonary complications and . The patient expressed a thorough understanding of the risks and benefits of surgery and has elected to proceed. Consent was signed. Additionally the patient was advised that I have recommended consultation with Infectious Disease. We will send bone cultures from the OR today and he will continue on oral antibiotics until follow-up with Infectious Disease and may require IV antibiotic treatment. Surgeon: Tahmina Caban Click Yes if Unassisted: Yes Anesthesia Type: General and Local Operative Notes Findings: Great toe circumferential chronic swelling and enlargement consistent with osteomyelitis. There is near complete bony destruction of the distal phalanx. With partial destruction distal proximal phalanx. Full-thickness draining ulcer distal pulp great toe. Additional full-thickness ulcer with surrounding callus the area of the previous 5th metatarsal head. Closure Type: primary Specimen(s): other Prosthetic devices, grafts, tissues, transplants, or devices: Bone was sent for microbiology and PCR of the proximal phalanx left great toe. Bone at the margin of resection of the 5th metatarsal base was sent for microbiology. A great toe amputation was then for pathology Estimated Blood Loss (mL): 15 Blood products transfused: none Tourniquet time (min): 77 Procedure in detail: Patient was seen in the preoperative area the site of surgery was marked informed consent confirmed. He was brought back to the operating room by the anesthesia team positioned in the supine position. General anesthetic was administered. The left lower extremities prepped and draped in the standard sterile procedure. Antibiotics were given. Informed consent was confirmed and the formal time-out procedure completed. Left lower extremity was elevated for exsanguination and the tourniquet was raised to 250 mmHg. Attention was then turned to the left foot. The great toe was enlarged consistent with chronic osteomyelitis. The mini C-arm was brought in. The desired level of resection of the proximal phalanx was marked off on the skin and then the plan skin flap beyond this. Additionally the planned resection level of the 5th metatarsal was marked off and the skin flap plan for this. Plan to try to utilize the 5th toe fully flap to help with coverage of the 5th metatarsal head area ulceration site. Next sharp incision was taken through the planned incision lines along the great toe circumferential full-thickness and excision in a fishmouth pattern was completed along the proximal phalanx. Next the base of the proximal phalanx of the great toe was exposed and the TPS saw was used to transect the base of the proximal phalanx of the great toe and the great toe stump and proximal part of the proximal phalanx were removed EN bloc and sent for pathology. Next attention was turned to the 5th toe a longitudinal incision along the 5th metatarsal was taken out to the tip of the 5th toe the full-thickness flaps were created. The 5th toe bones were then full laid out as well as the flexor and extensor tendons and removed forming of the lay flat. Proximally the remainder of the metatarsal was exposed and the level of the desire transection at the 5th metatarsal base was marked out and then transected with a TPS saw. At this point the bone was removed. The 5th metatarsal base with the peroneus brevis attachment was retained as well as the base of the proximal phalanx of the great toe. Thorough irrigation with cysto tubing and 6 L of saline was completed then the drapes and the gloves were changed. The saw was once again brought in to take off small additional slices from both the proximal phalanx of the great toe and the base of the 5th metatarsal and these were sent for microbiology and PCR as margins. Next attention was turned to fashioning the flaps. A 2-0 PDS was used to close the fishmouth incision of the great toe partial amputation this closed the deep tissue followed by 4-0 Monocryl and 4-0 nylon suture. Next attention was turned to the 5th ray resection wound and 5th toe fillet flap. As mentioned previously the 5th toe was flayed open to create a fully flap then the rotational alignment of the flap was planned to cover the excision of the 5th plantar ulcer which was ellipsed sized out full-thickness prior to the irrigation and debridement. The 5th toe was rotated into the recipient wound site and secured with 2-0 and 3-0 PDS additionally dog edges were trimmed. The remainder of the lateral ray resection wound was then closed deep with 3-0 PDS followed by 4-0 Monocryl and 4-0 nylon suture. Tourniquet was released prior to final closure and there was hemostasis. Additionally 1 g of vancomycin powder was divided and placed into both wound beds as local antibiotic. Once the tourniquet was released the remaining tissues and toes pinked up nicely. Sterile dressings were placed with Xeroform gauze and Kerlix dressing and an Jag wrap. Drapes removed. The patient was woken from anesthesia and taken to recovery room in good condition. There no immediate complications from this procedure. Mini C-arm fluoroscopy was used to document the resection levels of the great toe and 5th metatarsal. Complications: none Post-operative Condition: stable Disposition: PACU Plan for aftercare: Heal or flatfoot weight-bearing in the postoperative shoe or Darco shoe (forefoot offloading). Keep dressing in place and clean and dry until follow- up. Take oral antibiotic prescription.
[2022-03-25] MEDS: BENZOCAINE/MENTHOL 1 LOZ PKT 1 EACH PO (19:25)
[2022-04-07 08:37] LABS: Bacteria Det by PCR Univ WA DETECTED
== END 2022-03-25 19:42 | disposition home or self-care (01) ==
PROVIDERS: Family Provider Internal Medicine; PCP Physician Assistant Medical; Referring Provider Orthopaedic Surgery Foot and Ankle Surgery; Visit Provider Orthopaedic Surgery Foot and Ankle Surgery
PROC: (CPT 28810; principal; 2022-03-25 15:45)
PROC: (CPT 27685; 2022-03-25 15:45)
DX: E11.621 Type 2 diabetes mellitus with foot ulcer (principal); M86.672 Other chronic osteomyelitis, left ankle and foot; Z20.822 Contact with and (suspected) exposure to COVID-19
CPT/HCPCS: 28810; 28825; 14350; 80053; 82962; 85025; 85651; 86140; 87070; 87075; 87205; 87635; 87801; J0690; J1100; J2250; J2405; J2704; J3010

== ENCOUNTER 2022-03-26 12:35 | Emergency (ER) | payer OTHER, SELFPAY ==
[2019-04-26 15:58] VITALS: BMI 29.9
[2022-03-26 12:41] VITALS: BP 142/86; PULSE 102; RESP 18; TEMP 36.7; O2SAT 99; BMI 27.3
--- NOTE | 2022-03-26 13:31 | ED_ITS ---
HPI - Recheck/Abnormal Lab/Rx <Zay Almanza PA-C - Last Filed: 03/28/22 09:19> General Chief Complaint: Recheck/Abnormal Lab/Rx Stated Complaint: post op complications/had surgery 03/25 Time Seen by Provider: 03/26/22 12:36 Source: patient Mode of arrival: Wheelchair History of Present Illness HPI narrative: This is a 41-year-old male presents to the emergency department due to increased bloody strike through to his left foot dressing after surgery with Dr. Caban last night for a amputation of the left great toe and left 5th toe. Patient was concerned with the amount of bloody strike through he saw. He tried to call the wound care clinic but was unable to get through so he came here. Denies any fevers, numbness, severe pain, or any other concerning signs or symptoms. Related Data Previous Rx's Medication Instructions Recorded insulin lispro 100 unit/mL 10 unit (0.1 mL) SUBCUT .TIDAC #15 04/27/19 subcutaneous pen (Humalog KwikPen mL (U-100) Insulin) amoxicillin 875 mg-potassium 1 tab PO BID #30 tabs 03/25/22 clavulanate 125 mg tablet hydrocodone 5 mg-acetaminophen 325 1 tab PO Q8H PRN pain #14 tabs 03/25/22 mg tablet Allergies Allergy/AdvReac Type Severity Reaction Status Date / Time No Known Drug Allergies Allergy Unknown Verified 03/26/22 12:47 [NO KNOWN DRUG ALLERGIES] HAYFEVER Allergy Unknown Uncoded 06/21/17 12:29 Review of Systems <Zay Almanza PA-C - Last Filed: 03/28/22 09:19> Review of Systems Narrative: GENERAL: Denies chills, fatigue, malaise, fever, sweats. HEENT: Denies sinus pain, ear pain, sore throat, difficulty swallowing, dizziness. RESPIRATORY: Denies dyspnea, cough, wheezing, hemoptysis, sputum. CARDIOVASCULAR: Denies chest pain, palpitations, orthopnea, edema, GASTROINTESTINAL: Denies nausea, vomiting, abdominal pain, diarrhea, constipation, melena. : Denies dysuria, frequency, incontinence, hematuria, urinary retention. MUSCULOSKELETAL: denies weakness, joint pain, or bony pain SKIN: Bleeding on dressing NEUROLOGIC: Denies weakness, headache, numbness, change in speech, confusion, seizures, incoordination. PSYCHIATRIC: No concerning psychosocial issues. 12 point review of systems is negative except for those stated above Patient History <Zay Almanza PA-C - Last Filed: 03/28/22 09:19> Medical History (Updated 03/26/22 @ 14:13 by Zay Almanza PA-C) Cellulitis (08/16/16) Diabetes mellitus, insulin dependent (IDDM), uncontrolled Diabetic foot ulcer Diabetic ulcer of right foot HLD (hyperlipidemia) HTN (hypertension) MRSA (methicillin resistant Staphylococcus aureus) Surgical History (Updated 03/24/22 @ 08:22 by Jamee Taylor RN) History of incision and drainage (04/26/19) Hx of foot surgery Social History household members: friend(s) and none Smoking Status: Former smoker alcohol intake: never Smoking Status: Former smoker alcohol intake frequency: other Substance Use Type: marijuana Exam <Zay Almanza PA-C - Last Filed: 03/28/22 09:19> Narrative Exam Narrative: GENERAL: Well-developed patient, in mild distress. HEAD: Atraumatic. Normocephalic. EYES: Pupils equal round and reactive. Extraocular motions intact. No scleral icterus. No injection or drainage. ENT: Nose without bleeding, purulent drainage. Throat without erythema, tonsillar hypertrophy or exudate. Airway patent. NECK: Trachea midline. Non tender EXTREMITIES: No edema or joint tenderness. BACK: Nontender without deformity or crepitance. No flank tenderness. NEURO: AOx3. SKIN: No rash or erythema of visible areas Initial Vital Signs Initial Vital Signs: Vital Signs Temperature 98.1 F 03/26/22 12:41 Pulse Rate 102 H 03/26/22 12:41 Respiratory Rate 18 03/26/22 12:41 Blood Pressure 142/86 H 03/26/22 12:41 Pulse Oximetry 99 03/26/22 12:41 Oxygen Delivery Method 03/26/22 12:41 <Luis Armando Tinajero DO - Last Filed: 03/29/22 06:48> Initial Vital Signs Initial Vital Signs: Vital Signs Temperature 98.1 F 03/26/22 12:41 Pulse Rate 102 H 03/26/22 12:41 Respiratory Rate 18 03/26/22 12:41 Blood Pressure 142/86 H 03/26/22 12:41 Pulse Oximetry 99 03/26/22 12:41 Oxygen Delivery Method 03/26/22 12:41 Course <Zay Almanza PA-C - Last Filed: 03/28/22 09:19> Vital Signs Vital signs: Vital Signs - 8 hr 03/26/22 12:41 Temperature 98.1 F Pulse Rate 102 H Respiratory Rate 18 Blood Pressure 142/86 H Pulse Oximetry 99 Oxygen Delivery Method Room Air <Luis Armandofranci Tinajero DO - Last Filed: 03/29/22 06:48> Vital Signs Vital signs: Vital Signs - 8 hr 03/26/22 12:41 Temperature 98.1 F Pulse Rate 102 H Respiratory Rate 18 Blood Pressure 142/86 H Pulse Oximetry 99 Oxygen Delivery Method Room Air MDM - Recheck/Abnormal Lab/Rx <Zay Almanza PA-C - Last Filed: 03/28/22 09:19> MDM Narrative Medical decision making narrative: This is a 41-year-old male presents to the emergency department on postop day 1 after amputation of left 5th and left great toe due to chronic osteomyelitis with Dr. Douglas. Patient was concerned with the amount of bloody strike through affecting left 5th toe. Discussed the case with Dr. Guillen the on-call orthopedist, who stated that it would be appropriate to take down the dressings and change. Dressing was taken down and no abnormal findings on exam. All stitches appear in place. Wound was redressed appropriately. Patient will follow up with Dr. Douglas and the Wound Care Clinic as instructed on Monday as it opens. CC: Left foot bleeding Complicating co-morbidities: Recent osteomyelitis, treated with surgery Data collected from: Prior records Medical records reviewed: Medical records reviewed which showed the patient had surgery with Dr. Caban to treat left great and left 5th toe osteomyelitis yesterday. Per records patient was discharged with antibiotics and ID was consulted. Differential considered, but not limited to: Postop complication Exam documented above, pertinent findings include: Bloody strike through on dressings Lab Test results independently reviewed as above. Pertinent findings: None ordered Independently reviewed EKG as above: Not applicable Imaging studies independently reviewed: No new imaging ordered Scores Used: None MIPS Elements: Not Consultations: Spoke with Dr. Guillen of [facility] regarding case. Assistance appreciated. She stated that a dressing takedown and dressing change would be appropriate. Treatments: Patient's dressing was changed Re-evaluations: After dressing change patient was evaluated again Discussion: Discussed plan with patient who is comfortable discharging home Diagnosis: Routine Postop bleeding Disposition: see below, along with detailed discharge instructions that have been reviewed with patient as well as indications for ED re-evaluation and additional outpatient follow up Discharge Plan Departure Patient Disposition: Home Clinical Impression: Post-op bleeding Activity Restrictions/Additional Instructions: Thank you for coming to the [facility] Emergency Department today. I spoke with the partner of Dr. Caban regarding your postop bleeding. There is no significant concern at this time and I recommend you follow-up with the Wound C are Clinic as instructed on Monday when they open for routine follow-up. Please also call Dr. Caban's office on Monday for further recommendations and evaluation. I hope you feel better soon. Prescriptions: No Action hydrocodone-acetaminophen 5-325 mg tablet 1 tab PO Q8H PRN (Reason: pain) Qty: 14 0RF Rx Instructions: postop exempt amoxicillin-pot clavulanate 875-125 mg tablet 1 tab PO BID Qty: 30 0RF insulin lispro [Humalog KwikPen Insulin] 100 unit/mL Insulin Pen 10 unit SUBCUT .TIDAC Qty: 15 0RF Rx Instructions: Based on Sliding Scale Referrals: Louise Graham PA-C [Primary Care Provider] - Stand Alone Forms: Patient Portal/API <Luis Armando Tinajero DO - Last Filed: 03/29/22 06:48> Cosign ED Attending [place] Attestation: I was immediately available in the department for consultation. Documentation has been reviewed. I agree with assessment and plan.
--- NOTE | 2022-03-26 14:33 | PC.NURSE ---
Dressing removed per Archie HUDDLESTON, surgical sites assessed by Archie HUDDLESTON. Dressing saturated with moderate amount of blood. Left big toe incisions with small slow ooze, left lateral incision clean and dry. Incisions cleaned with Chloraprep, dressed with xeroform, gauze pads, gauze roll, and magdi bandage. Pt tolerated well.
[2022-03-26 14:40] VITALS: BP 117/63; PULSE 98; RESP 18; O2SAT 99
== END 2022-03-26 14:40 | disposition home or self-care (01) ==
PROVIDERS: Emergency Provider Physician Assistant Medical; Family Provider Internal Medicine; PCP Physician Assistant Medical
DX: M96.830 Postprocedural hemorrhage of a musculoskeletal structure following a musculoskeletal system procedure (principal)
CPT/HCPCS: 99281

== ENCOUNTER → 2023-04-14 10:37 | Outpatient (CLI) | payer OTHER, SELFPAY ==
[2019-04-26 15:58] VITALS: BMI 29.9
== END ==
PROVIDERS: PCP Physician Assistant Medical; Visit Provider Surgery
DX: E11.621 Type 2 diabetes mellitus with foot ulcer (principal); L97.509 Non-pressure chronic ulcer of other part of unspecified foot with unspecified severity; L08.9 Local infection of the skin and subcutaneous tissue, unspecified; L97.512 Non-pressure chronic ulcer of other part of right foot with fat layer exposed; L97.522 Non-pressure chronic ulcer of other part of left foot with fat layer exposed; L84 Corns and callosities; M86.171 Other acute osteomyelitis, right ankle and foot; E11.42 Type 2 diabetes mellitus with diabetic polyneuropathy; Z79.4 Long term (current) use of insulin
CPT/HCPCS: 11042; 36415; 73630; 83036; 87070; 87077; 87147; 87186; 87205; 99204; 99213

== ENCOUNTER → 2023-04-14 12:38 | Outpatient (CLI) | payer OTHER, SELFPAY ==
[2019-04-26 15:58] VITALS: BMI 29.9
--- NOTE | 2023-04-14 12:41 | DI.RAD.S_ITS ---
PROCEDURE: XR FOOT RT MIN 3V INDICATIONS: Eval for osteo TECHNIQUE: 3 views of the foot were acquired. COMPARISON: [facility], CR, XR FOOT LT MIN 3V, 02/23/2022, 11:16. FINDINGS: Bones: No fractures or dislocations. Osteoarthritic changes are noted throughout midfoot and forefoot joints. Erosive changes are noted involving 5th metatarsal head and neck as well as adjacent plantar and lateral aspect of 5th proximal phalangeal base. No suspicious bony lesions. Soft tissues: Ulceration along plantar and lateral aspect of forefoot adjacent to 5th toe is seen. Possible small ulceration over dorsal aspect of 1st distal phalanx is also noted. No tibiotalar joint effusion. Achilles tendon appears normal. IMPRESSION: Ulceration involving plantar and lateral aspect of forefoot and over dorsal aspect of great toe as above. Suggestion of osteomyelitis involving 5th metatarsal head and neck as well as adjacent 5th proximal phalangeal base. No acute fracture or dislocation. Osteoarthritic changes throughout midfoot and forefoot joints. Dictated by: Nolan Bishop M.D. on 04/14/2023 at 14:39 Approved by: Nolan Bishop M.D. on 04/14/2023 at 14:41
--- NOTE | 2023-04-14 13:01 | DI.RAD.S_ITS ---
PROCEDURE: XR FOOT LT MIN 3V INDICATIONS: Eval for osteo TECHNIQUE: 3 views of the foot were acquired. COMPARISON: [facility], CR, XR FOOT LT MIN 3V, 02/23/2022, 11:16. FINDINGS: Bones: Patient is status post interval amputation of great toe and 5th toe at the level of 1st proximal phalangeal base and proximal 5th metatarsal shaft. Surgical margin is clean. No gross bony erosive changes are seen. Osteoarthritic changes are noted throughout left foot. No suspicious bony lesions. Soft tissues: Surgical wound versus ulceration involving plantar and lateral aspect of midfoot. No tibiotalar joint effusion. Achilles tendon appears normal. IMPRESSION: Interval resection of 1st and 5th toes with postsurgical changes as above. Surgical margins are clean. No gross bony erosive changes to suggest osteomyelitis in left foot. No acute fracture or dislocation. Ulceration versus surgical wound over plantar and lateral aspect of midfoot at the level of 5th metatarsal stump. Dictated by: Nolan Bishop M.D. on 04/14/2023 at 14:41 Approved by: Nolan Bishop M.D. on 04/14/2023 at 14:56
[2023-04-14 13:19] LABS: Hemoglobin A1C% w Est Avg Glu 8.8 % (4.0-6.0)
== END ==
PROVIDERS: PCP Physician Assistant Medical; Referring Provider Physician Assistant; Visit Provider Physician Assistant
DX: E11.621 Type 2 diabetes mellitus with foot ulcer (principal); L97.509 Non-pressure chronic ulcer of other part of unspecified foot with unspecified severity; L08.9 Local infection of the skin and subcutaneous tissue, unspecified
CPT/HCPCS: 36415; 73630; 83036

== ENCOUNTER → 2023-04-21 09:21 | Outpatient (CLI) | payer OTHER, SELFPAY ==
[2019-04-26 15:58] VITALS: BMI 29.9
--- NOTE | 2023-04-21 09:30 | DI.MRI.S_ITS ---
PROCEDURE: MR FOOT RT WO/W CON INDICATIONS: eval for osteo TECHNIQUE: Noncontrast coronal T1 spin echo and STIR, sagittal T1 spin echo with fat saturation and STIR, axial T1 spin echo and T2 fast spin echo with fat saturation. After the administration of contrast, axial/sagittal/coronal T1 spin echo with fat saturation through the right foot. COMPARISON: [facility], CR, XR FOOT RT MIN 3V, 04/14/2023, 13:02. [facility], MR, MR FOOT LT WO/W CON, 04/19/2019, 19:57. FINDINGS: Image quality: Excellent. Bones: There is extensive marrow edema throughout 5th metatarsal shaft and show heterogeneous contrast enhancement. Similar edema and enhancement involving 5th proximal phalangeal shaft is also seen. Erosive changes and deformity involving 5th metatarsal head is seen. No other area of abnormal marrow signal or abnormal enhancement. No acute fracture or dislocation. Soft tissues: There is significant soft tissue edema and swelling surrounding mid to distal shaft of 5th metatarsal head and 5th MTP joint. No significant joint effusion. No enhancing soft tissue mass or peripherally enhancing drainable fluid collection is seen. Extensor and flexor tendons are grossly intact. Lisfranc ligament is intact. Myositis involving visualized plantar foot muscles is seen with edema throughout the plantar foot muscles. No intramuscular mass or fluid collection. IMPRESSION: 1. Ulceration involving plantar aspect of 5th toe at the level of 5th MTP joint with surrounding cellulitis. No drainable fluid collection. 2. Osteomyelitis involving 5th metatarsal bone and adjacent 5th proximal phalanx as above. Bony erosive changes are noted involving 5th metatarsal head. No other area of abnormal marrow signal or enhancement. No fracture or dislocation. 3. Myositis involving plantar foot muscles. No intramuscular fluid collection or enhancing mass. Dictated by: Nolan Bishop M.D. on 04/21/2023 at 13:39 Approved by: Nolan Bishop M.D. on 04/21/2023 at 13:52
== END ==
PROVIDERS: PCP Physician Assistant Medical; Referring Provider Physician Assistant; Visit Provider Physician Assistant
DX: E11.621 Type 2 diabetes mellitus with foot ulcer (principal); Z86.31 Personal history of diabetic foot ulcer; L97.411 Non-pressure chronic ulcer of right heel and midfoot limited to breakdown of skin; E11.628 Type 2 diabetes mellitus with other skin complications; L03.115 Cellulitis of right lower limb; E11.69 Type 2 diabetes mellitus with other specified complication; M86.9 Osteomyelitis, unspecified; M60.871 Other myositis, right ankle and foot
CPT/HCPCS: 73720; A9579

== ENCOUNTER → 2023-04-21 11:41 | Outpatient (CLI) | payer OTHER, SELFPAY ==
[2019-04-26 15:58] VITALS: BMI 29.9
== END ==
PROVIDERS: PCP Physician Assistant Medical; Visit Provider Physician Assistant
DX: L08.9 Local infection of the skin and subcutaneous tissue, unspecified (principal); E11.621 Type 2 diabetes mellitus with foot ulcer; L97.411 Non-pressure chronic ulcer of right heel and midfoot limited to breakdown of skin; E11.628 Type 2 diabetes mellitus with other skin complications; L03.115 Cellulitis of right lower limb; M86.9 Osteomyelitis, unspecified; E11.69 Type 2 diabetes mellitus with other specified complication; M60.861 Other myositis, right lower leg; Z86.31 Personal history of diabetic foot ulcer; M60.871 Other myositis, right ankle and foot; M86.171 Other acute osteomyelitis, right ankle and foot; L97.522 Non-pressure chronic ulcer of other part of left foot with fat layer exposed; L97.512 Non-pressure chronic ulcer of other part of right foot with fat layer exposed; L84 Corns and callosities; L53.9 Erythematous condition, unspecified; R23.4 Changes in skin texture; I10 Essential (primary) hypertension; Z79.4 Long term (current) use of insulin
CPT/HCPCS: 11042; 73720; 87070; 87077; 87147; 87186; 87205; 99213; A9579

== ENCOUNTER → 2023-04-28 13:22 | Outpatient (CLI) | payer OTHER, SELFPAY ==
[2019-04-26 15:58] VITALS: BMI 29.9
== END ==
PROVIDERS: PCP Physician Assistant Medical; Referring Provider Physician Assistant Medical; Visit Provider Physician Assistant
DX: E11.621 Type 2 diabetes mellitus with foot ulcer (principal); L97.522 Non-pressure chronic ulcer of other part of left foot with fat layer exposed; L97.516 Non-pressure chronic ulcer of other part of right foot with bone involvement without evidence of necrosis; L84 Corns and callosities; R23.4 Changes in skin texture; I10 Essential (primary) hypertension
CPT/HCPCS: 11042; 99214

== ENCOUNTER 2023-04-28 14:24 | Emergency (ER) | payer OTHER, SELFPAY ==
[2019-04-26 15:58] VITALS: BMI 29.9
[2023-04-28 14:31] VITALS: BP 155/98; PULSE 94; RESP 16; TEMP 36.1; O2SAT 98; BMI 30.4
--- NOTE | 2023-04-28 14:41 | DI.RAD.S_ITS ---
PROCEDURE: XR ACUTE ABDOMEN SERIES INDICATIONS: abd pain TECHNIQUE: One view chest and two views of the abdomen were acquired. COMPARISON: None. FINDINGS: Surgical changes and devices: None. Chest: Lungs are clear. Heart size is normal. No pleural effusions. No pneumoperitoneum. Abdomen: Bowel gas pattern is nonspecific but there are several small bowel loops at the left mid abdomen with air-fluid levels, potentially a manifestation of focal ileus. No suspicious calcifications. Visualized solid organ contours appear normal. Bones: No suspicious bony lesions. IMPRESSION: Possible focal ileus producing air-fluid levels within several small bowel loops at the right mid abdomen. Depending on the clinical status follow-up by CT scanning may become necessary. Dictated by: Marcelino Redd M.D. on 04/28/2023 at 16:06 Approved by: Marcelino Redd M.D. on 04/28/2023 at 16:07
[2023-04-28 15:12] LABS: Add Manual Diff / Slide Review NO; Basophils Absolute Auto 100 /uL (0-100); Eosinophils Absolute Auto 300 /uL (0-450); Eosinophils Percent Auto 2.6 % (2-4); Hematocrit 45.5 % (41-53); Hemoglobin 15.3 g/dL (13.5-17.5); Lymphocytes Absolute Auto 2100 /uL (1100-4500); Lymphocytes Percent Auto 18.8 % (25-40); Mean Corpuscular HGB Conc 33.7 % (30-36); Mean Corpuscular Hemoglobin 27.3 PG (26-34); Mean Corpuscular Volume 81.2 fL (80-100); Monocytes Absolute Auto 1100 /uL (0-900); Monocytes Percent Auto 9.5 % (3-14); Neutrophils Absolute Auto 7700 /uL (1500-7000); Neutrophils Percent Auto 68.1 % (50-75); Platelet Count 285 X10^3/uL (150-400); Red Cell Distribution Width 14.2 % (11.6-14.8); White Blood Cell Count 11.3 X10^3/uL (4.5-11.0)
[2023-04-28 15:20] LABS: Bacteria Urine Occasional (0-1); Culture Indicated Urine Cult Not Indicated; RBC Urine 1-5/HPF (0-5/HPF); Squamous Epithelial Cell Urine None Seen (0-5/HPF); Urine Volume 10mL (spun); WBC Urine 0-1/HPF (0-5/HPF)
[2023-04-28 15:29] LABS: Alanine Aminotransferase 47 IU/L (<50); Albumin 3.9 g/dL (3.5-5.0); Alkaline Phosphatase 60 U/L (38-126); Aspartate Aminotransferase 24 IU/L (17-59); BUN Creatinine Ratio 13.9 (6-22); Bilirubin Total 1.1 mg/dL (0.2-1.3); Blood Urea Nitrogen 19 mg/dL (9-20); Calcium 9.2 mg/dL (8.4-10.2); Carbon Dioxide 27 mmol/L (22-32); Chloride 100 mmol/L (98-107); Estimated Glomerular Filt Rate > 60 mL/min (>60); Globulin 3.8 g/dL (1.7-4.1); Glucose 93 mg/dL (70-100); HEMOLYSIS < 15 (0-50); Lipase 352 U/L (23-300); Potassium 4.1 mmol/L (3.4-5.1); Sodium 136 mmol/L (137-145); Total Protein 7.7 g/dL (6.3-8.2)
--- NOTE | 2023-04-28 16:05 | ED_ITS ---
HPI - Abdominal Pain <JOSE Katz - Last Filed: 04/28/23 19:25> General Chief Complaint: Abdominal Pain Stated Complaint: ABDOMINAL PAIN Time Seen by Provider: 04/28/23 15:31 Mode of arrival: Ambulatory History of Present Illness HPI narrative: 42-year-old male, former smoker, presents to the emergency department with abdominal pain x2 days. Patient states that he ate a lot of food on Monday and Monday, and then had diarrhea for the next 2 days. Patient started taking Pepto-Bismol, approximately 4 tablets per day, with last dose yesterday. Last normal BM was 3 days ago and today had only a tiny amount forced out. Patient denies any nausea or vomiting. Position of comfort is standing and worsens with lying flat. Patient denies any alcohol intake. Patient did drive himself to the emergency department and does not have someone who can drive him home. Related Data Previous Rx's Medication Instructions Recorded insulin lispro 100 unit/mL 10 unit (0.1 mL) SUBCUT .TIDAC #15 04/27/19 subcutaneous pen (Humalog KwikPen mL (U-100) Insulin) amoxicillin 875 mg-potassium 1 tab PO BID #30 tabs 03/25/22 clavulanate 125 mg tablet hydrocodone 5 mg-acetaminophen 325 1 tab PO Q8H PRN pain #14 tabs 03/25/22 mg tablet ciprofloxacin HCl 500 mg tablet 500 mg PO BID #14 tabs 04/24/23 Allergies Allergy/AdvReac Type Severity Reaction Status Date / Time No Known Drug Allergies Allergy Unknown Verified 04/28/23 14:36 [NO KNOWN DRUG ALLERGIES] HAYFEVER Allergy Unknown Uncoded 04/28/23 14:36 Review of Systems <JOSE Katz - Last Filed: 04/28/23 19:25> Review of Systems Narrative: Narrative: See HPI. GENERAL: Denies chills, fatigue, fever, sweats. HEENT: Denies sinus pain, ear pain, sore throat, difficulty swallowing, dizziness. RESPIRATORY: Denies dyspnea, cough, wheezing, sputum. CARDIOVASCULAR: Denies chest pain, palpitations, edema. GASTROINTESTINAL: Denies nausea, vomiting, diarrhea. Endorses abdominal pain and constipation. : Denies dysuria, frequency, incontinence, hematuria, urinary retention, flank pain. MSK: Denies weakness, joint pain, or bony pain. SKIN: Denies rash, skin lesions, or pruritis. NEUROLOGIC: Denies weakness, dizziness, headache, numbness, confusion. PSYCHIATRIC: No concerning psychosocial issues. Patient History <JOSE Katz - Last Filed: 04/28/23 19:25> Medical History MRSA (methicillin resistant Staphylococcus aureus) Cellulitis (08/16/16) HLD (hyperlipidemia) HTN (hypertension) Diabetes mellitus, insulin dependent (IDDM), uncontrolled Diabetic ulcer of right foot Diabetic foot ulcer Surgical History History of incision and drainage (04/26/19) Hx of foot surgery Social History household members: friend(s) and none Smoking Status: Former smoker alcohol intake: never Smoking Status: Former smoker alcohol intake frequency: other Substance Use Type: marijuana Exam <JOSE Katz - Last Filed: 04/28/23 19:25> Narrative Exam Narrative: Exam Narrative: GENERAL: This is a well-nourished, well-developed patient, in no acute distress. HEAD: Atraumatic. Normocephalic. EYES: Pupils equal round and reactive. No scleral icterus, injection or drainage. ENT: Nose without bleeding, purulent drainage. Throat without erythema, tonsillar hypertrophy or exudate. Uvula midline. Airway patent. TMs and canals clear. No sinus tenderness. NECK: Trachea midline. No JVD or lymphadenopathy. Nontender. CARDIOVASCULAR: Regular rate and rhythm without murmurs, peripheral pulses intact, cap refill <2 sec. RESPIRATORY: Breath sounds equal and clear bilaterally. No wheezes, rales, or rhonchi. No cough. No increased respiratory effort. No accessory muscle use. GASTROINTESTINAL: Abdomen soft, generalized tenderness, nondistended without guarding or rebound. No suprapubic pain. No CVA tenderness. Reports 8/10 pain. MSK: Moves all extremities. Normal range of motion, no clubbing or edema. Neurovascularly intact. NEURO: A&O x 3. SKIN: Warm, dry, no rashes or lesions noted. Initial Vital Signs Initial Vital Signs: Vital Signs Temperature 97.0 F L 04/28/23 14:31 Pulse Rate 94 H 04/28/23 14:31 Respiratory Rate 16 04/28/23 14:31 Blood Pressure 155/98 H 04/28/23 14:31 Pulse Oximetry 98 04/28/23 14:31 Oxygen Delivery Method Room Air 04/28/23 14:31 Reviewed <Ashley Espitia MD - Last Filed: 04/29/23 04:12> Initial Vital Signs Initial Vital Signs: Vital Signs Temperature 97.0 F L 04/28/23 14:31 Pulse Rate 94 H 04/28/23 14:31 Respiratory Rate 16 04/28/23 14:31 Blood Pressure 155/98 H 04/28/23 14:31 Pulse Oximetry 98 04/28/23 14:31 Oxygen Delivery Method Room Air 04/28/23 14:31 Course <JOSE Katz - Last Filed: 04/28/23 19:25> Orders Ordered: ED Orders 04/28/23 14:41 XR acute abdomen series Stat 04/28/23 14:49 Urine Microscopic Stat 04/28/23 14:55 Complete Blood Count AUTO DIFF Stat Comprehensive Metabolic Panel Stat Lipase Stat 04/28/23 16:14 CT abdomen pelvis w con Stat 04/28/23 17:39 US abdomen limited Stat Vital Signs Vital signs: Vital Signs - 8 hr 04/28/23 14:31 Temperature 97.0 F L Pulse Rate 94 H Respiratory Rate 16 Blood Pressure 155/98 H Pulse Oximetry 98 Oxygen Delivery Method Room Air <Ashley Espitia MD - Last Filed: 04/29/23 04:12> Orders Ordered: ED Orders 04/28/23 14:41 XR acute abdomen series Stat 04/28/23 14:49 Urine Microscopic Stat 04/28/23 14:55 Complete Blood Count AUTO DIFF Stat Comprehensive Metabolic Panel Stat Lipase Stat 04/28/23 16:14 CT abdomen pelvis w con Stat 04/28/23 17:39 US abdomen limited Stat Vital Signs Vital signs: Vital Signs - 8 hr 04/28/23 14:31 Temperature 97.0 F L Pulse Rate 94 H Respiratory Rate 16 Blood Pressure 155/98 H Pulse Oximetry 98 Oxygen Delivery Method Room Air MDM - Abdominal Pain <JOSE Katz - Last Filed: 04/28/23 19:25> Differential Diagnosis Differential diagnosis: Likely abdominal pain, calculus of kidney, constipation, small bowel obstruction and other (Cholelithiasis) Lab Data 04/28/23 14:55 04/28/23 14:55 Labs: Lab Results 04/28/23 04/28/23 Range/Units 14:49 14:55 WBC 11.3 H (4.5-11.0) X10^3/uL RBC 5.60 (4.5-5.9) X10^6/uL Hgb 15.3 (13.5-17.5) g/dL Hct 45.5 (41-53) % MCV 81.2 (80-100) fL MCH 27.3 (26-34) PG MCHC 33.7 (30-36) % RDW 14.2 (11.6-14.8) % Plt Count 285 (150-400) X10^3/uL Neut % (Auto) 68.1 (50-75) % Lymph % (Auto) 18.8 L (25-40) % [place] % (Auto) 9.5 (3-14) % Eos % (Auto) 2.6 (2-4) % Baso % (Auto) 1.0 (0-2) % Neut # (Auto) 7700 H (6563-7247) /uL Lymph # (Auto) 2100 (1375-5110) /uL [place] # (Auto) 1100 H (0-900) /uL Eos # (Auto) 300 (0-450) /uL Baso # (Auto) 100 (0-100) /uL Sodium 136 L (137-145) mmol/L Potassium 4.1 (3.4-5.1) mmol/L Chloride 100 (98-107) mmol/L Carbon Dioxide 27 (22-32) mmol/L BUN 19 (9-20) mg/dL Creatinine 1.37 H (0.66-1.25) mg/dL Estimated GFR > 60 (>60) mL/min BUN/Creatinine Ratio 13.9 (6-22) Glucose 93 (70-100) mg/dL Calcium 9.2 (8.4-10.2) mg/dL Total Bilirubin 1.1 (0.2-1.3) mg/dL AST 24 (17-59) IU/L ALT 47 (<50) IU/L Alkaline Phosphatase 60 (38-126) U/L Total Protein 7.7 (6.3-8.2) g/dL Albumin 3.9 (3.5-5.0) g/dL Globulin 3.8 (1.7-4.1) g/dL Albumin/Globulin Ratio 1.0 (1.0-2.8) Lipase 352 H (23-300) U/L Urine RBC 1-5/hpf (0-5/HPF) Urine WBC 0-1/hpf (0-5/HPF) Ur Squamous Epith Cells None seen (0-5/HPF) Urine Bacteria Occasional (0-1) (None) Ur Culture Indicated? Cult not indicated Vol Urine Centrifuged 10ml (spun) Point of care testing: Urine Dip Bedside Urine Glucose Negative Bedside Urine Bilirubin - Negative Bedside Urine Ketone - Negative Urine Specific [place] 1.010 Bedside Urine Occult Blood ++ Bedside Urine pH 6.0 Bedside Urine Protein ++ 100 Bedside Urine Urobilinogen - Negative Bedside Urine Nitrite - Negative Bedside Urine Leukocytes - Negative Esterase Imaging Data Abdominal x-ray: Radiologist's Impression: [address] [address] XRay Report Signed Patient: Mahesh Dickerson MR#: [id number] : 1980 Acct:[id number] Age/Sex: 42 / M Date of Service: 04/28/23 Loc: ED Accession Number: [id number] Procedure: XR acute abdomen series Ordering Provider: Deion Roblero MD PROCEDURE: XR ACUTE ABDOMEN SERIES INDICATIONS: abd pain TECHNIQUE: One view chest and two views of the abdomen were acquired. COMPARISON: None. FINDINGS: Surgical changes and devices: None. Chest: Lungs are clear. Heart size is normal. No pleural effusions. No pneumoperitoneum. Abdomen: Bowel gas pattern is nonspecific but there are several small bowel loops at the left mid abdomen with air-fluid levels, potentially a manifestation of focal ileus. No suspicious calcifications. Visualized solid organ contours appear normal. Bones: No suspicious bony lesions. IMPRESSION: Possible focal ileus producing air-fluid levels within several small bowel loops at the right mid abdomen. Depending on the clinical status follow-up by CT scanning may become necessary. Dictated by: Marcelino Redd M.D. on 04/28/2023 at 16:06 Approved by: Marcelino Redd M.D. on 04/28/2023 at 16:07 CT scan - abdomen/pelvis: Radiologist's Impression: [address] [address] [address] Scan Report Signed Patient: Mahesh Dickerson MR#: [id number] : 1980 Acct:[id number] Age/Sex: 42 / M Date of Service: 04/28/23 Loc: ED Accession Number: [id number] Procedure: CT abdomen pelvis w con Ordering Provider: Jesus Alberto Montero PROCEDURE: CT ABDOMEN PELVIS W CON INDICATIONS: Abdominal pain r/o small-bowel obstruction TECHNIQUE: After the administration of intravenous contrast, axial sections acquired from the lung bases to the pubic symphysis. Coronal and sagittal reformats were performed. For radiation dose reduction, the following was used: automated exposure control, adjustment of mA and/or kV according to patient size. COMPARISON: None. FINDINGS: Image quality: Diagnostic. Lower Chest: No significant findings. ABDOMEN: Liver: No masses Gallbladder: Normal wall thickness. There is dependently layering hyperdense material at the fundus. Biliary ducts: Nondilated. Pancreas: Normal. Spleen: Enlarged at 15.4 cm in length. Adrenal Glands: No nodules. Kidneys and Ureters: Moderate, chronic appearing left hydronephrosis and cystic prominence of left renal pelvis. Left ureter is nondilated. Renal enhancement is symmetric. No nephrolithiasis. Stomach and Bowel: There is circumferential wall thickening of the rectum, possibly due to partial decompression. No significant perirectal inflammation. Normal quantity of solid stool present throughout the rest of the colon. No suspicious colon wall thickening. Normal appendix. Decompressed and some fluid-filled small bowel loops. Normal stomach. Peritoneum: No abnormal intraperitoneal fluid. No free air. Ventral Wall: No significant ventral hernia. Abdominal Nodes: No retroperitoneal or mesenteric adenopathy by size criteria. Vessels: Aorta and inferior vena cava are normal in size. Retro aortic left renal vein. PELVIS: Pelvic Organs: Unremarkable. Bladder: Mild diffuse urinary bladder wall thickening. No stones. Pelvic Nodes: Numerous borderline bilateral inguinal and pelvic lymph nodes. No bulky adenopathy. Miscellaneous: No inguinal hernias are seen. Bones: No aggressive osseous abnormality. IMPRESSION: Decompressed rectum with possibly thickened wall. Clinical correlation recommended. There are no other changes of colitis. Gastroenteritis may have this appearance. Mild diffuse urinary bladder wall thickening. Correlate with UA to exclude cystitis. 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 Correlate with renal function. Probable trace cholelithiasis. Dictated by: Cheyenne Kowalski M.D. on 04/28/2023 at 17:14 Approved by: Cheyenne Kowalski M.D. on 04/28/2023 at 17:20 [facility] Narrative Medical decision making narrative: 42-year-old male with abdominal pain. Assessment was inconclusive, but concerning due to the amount of pain patient is experiencing. Patient does not have a ride home and therefore pain medications not given at this time. Patient states he has pain medication at home that he can take. Labs are non concerning. Abdominal x-ray reveals focal ileus and recommended CT scan. CT scan revealed trace cholelithiasis. Discussed case with Dr. Roblero and decision was made to obtain ultrasound of gallbladder. Ultrasound obtained and minor amounts of sludge noted by instructional technology coach. Have not been able to get the radiologist's report and spoke with Dr. Espitia of the ED, who is agreeable with me sending him home with referral to General surgery. Discussed plan of care and worsening symptoms that would necessitate a return visit with patient, who verbalized understanding and was agreeable with course of action. <Ashley Espitia MD - Last Filed: 04/29/23 04:12> Lab Data Labs: Lab Results 04/28/23 04/28/23 Range/Units 14:49 14:55 WBC 11.3 H (4.5-11.0) X10^3/uL RBC 5.60 (4.5-5.9) X10^6/uL Hgb 15.3 (13.5-17.5) g/dL Hct 45.5 (41-53) % MCV 81.2 (80-100) fL MCH 27.3 (26-34) PG MCHC 33.7 (30-36) % RDW 14.2 (11.6-14.8) % Plt Count 285 (150-400) X10^3/uL Neut % (Auto) 68.1 (50-75) % Lymph % (Auto) 18.8 L (25-40) % [place] % (Auto) 9.5 (3-14) % Eos % (Auto) 2.6 (2-4) % Baso % (Auto) 1.0 (0-2) % Neut # (Auto) 7700 H (0799-8495) /uL Lymph # (Auto) 2100 (3811-9280) /uL [place] # (Auto) 1100 H (0-900) /uL Eos # (Auto) 300 (0-450) /uL Baso # (Auto) 100 (0-100) /uL Sodium 136 L (137-145) mmol/L Potassium 4.1 (3.4-5.1) mmol/L Chloride 100 (98-107) mmol/L Carbon Dioxide 27 (22-32) mmol/L BUN 19 (9-20) mg/dL Creatinine 1.37 H (0.66-1.25) mg/dL Estimated GFR > 60 (>60) mL/min BUN/Creatinine Ratio 13.9 (6-22) Glucose 93 (70-100) mg/dL Calcium 9.2 (8.4-10.2) mg/dL Total Bilirubin 1.1 (0.2-1.3) mg/dL AST 24 (17-59) IU/L ALT 47 (<50) IU/L Alkaline Phosphatase 60 (38-126) U/L Total Protein 7.7 (6.3-8.2) g/dL Albumin 3.9 (3.5-5.0) g/dL Globulin 3.8 (1.7-4.1) g/dL Albumin/Globulin Ratio 1.0 (1.0-2.8) Lipase 352 H (23-300) U/L Urine RBC 1-5/hpf (0-5/HPF) Urine WBC 0-1/hpf (0-5/HPF) Ur Squamous Epith Cells None seen (0-5/HPF) Urine Bacteria Occasional (0-1) (None) Ur Culture Indicated? Cult not indicated Vol Urine Centrifuged 10ml (spun) Point of care testing: Urine Dip Bedside Urine Glucose Negative Bedside Urine Bilirubin - Negative Bedside Urine Ketone - Negative Urine Specific [place] 1.010 Bedside Urine Occult Blood ++ Bedside Urine pH 6.0 Bedside Urine Protein ++ 100 Bedside Urine Urobilinogen - Negative Bedside Urine Nitrite - Negative Bedside Urine Leukocytes - Negative Esterase Discharge Plan Departure Patient Disposition: Home Clinical Impression: Abdominal pain Qualifiers: Abdominal location: generalized Qualified Code(s): R10.84 - Generalized abdominal pain Instructions: DI for Abdominal Pain-Adult Activity Restrictions/Additional Instructions: *You have been diagnosed with abdominal pain. Your labs were not concerning and your x-ray, CT and ultrasound revealed a minor issue with your gallbladder. I am not sure what is causing your discomfort, but we have ruled out small-bowel obstruction, appendicitis, kidney stone, etc.. Please make sure you get plenty of rest, hydrate well and use your at-home medications as needed for discomfort. For any worsening symptoms, that include chest pain, shortness of breath, intolerable pain, etc. please feel free to return to the emergency department. Otherwise, follow up with your family doctor as needed. I have placed a referral for General surgery for you to contact them on Monday if your symptoms persist. *What to do: *Please continue to take your regular medications as directed. [ ] New medication prescriptions sent to your pharmacy: [ ] [ ] New medication written as a paper prescription [x ] No new medications given *Please follow up with your primary care provider in 2-3 days, call for an appointment. Let them know you were seen in the Emergency Department and that we ask that you be seen in follow up. We will electronically transmit a record of today's note if your PCP is in our system *If you do not have a primary care provider please contact the [facility] Resource line at [phone]. They will ask some questions about your medical history and help get you set up with a doctor in the community. ? Return to ER if you should have any new, worsening or concerning symptoms, such as worsening pain, severe headache, confusion, chest pain, difficulty breathing, fever greater than 101 F, shaking chills, persistent vomiting to the point that you cannot drink fluids, or other new or worsening symptoms. Prescriptions: No Action ciprofloxacin HCl 500 mg tablet 500 mg PO BID Qty: 14 0RF hydrocodone-acetaminophen 5-325 mg tablet 1 tab PO Q8H PRN (Reason: pain) Qty: 14 0RF Rx Instructions: postop exempt amoxicillin-pot clavulanate 875-125 mg tablet 1 tab PO BID Qty: 30 0RF insulin lispro [Humalog KwikPen Insulin] 100 unit/mL Insulin Pen 10 unit SUBCUT .TIDAC Qty: 15 0RF Rx Instructions: Based on Sliding Scale Referrals: Radha Amos MD [Physician] - (Evaluate and treat abdominal pain) Miscellbill,MD Alan [Primary Care Provider] - Stand Alone Forms: Patient Portal/API ED Sign-out <Ashley Espitia MD - Last Filed: 04/29/23 04:12> Cosign ED Attending Cosignature Attestation: Shared APC visit, physician attestation: [id number] Workup and MDM were discussed with APC. (independent interpretation) my (ultrasound/CT) interpretation: Ultrasound does not show acute cholecystitis. CT scan is reviewed. Interpretation discussed with a J LUIS Leggett prior to discharge. This patient is not acutely ill, is not meeting criteria for further workup does not need additional imaging. A referral is initiated to general surgery to discuss possible cholelithiasis/sludge. Instructions on return are reviewed he is safe for discharge
--- NOTE | 2023-04-28 16:14 | DI.CT.S_ITS ---
PROCEDURE: CT ABDOMEN PELVIS W CON INDICATIONS: Abdominal pain r/o small-bowel obstruction TECHNIQUE: After the administration of intravenous contrast, axial sections acquired from the lung bases to the pubic symphysis. Coronal and sagittal reformats were performed. For radiation dose reduction, the following was used: automated exposure control, adjustment of mA and/or kV according to patient size. COMPARISON: None. FINDINGS: Image quality: Diagnostic. Lower Chest: No significant findings. ABDOMEN: Liver: No masses Gallbladder: Normal wall thickness. There is dependently layering hyperdense material at the fundus. Biliary ducts: Nondilated. Pancreas: Normal. Spleen: Enlarged at 15.4 cm in length. Adrenal Glands: No nodules. Kidneys and Ureters: Moderate, chronic appearing left hydronephrosis and cystic prominence of left renal pelvis. Left ureter is nondilated. Renal enhancement is symmetric. No nephrolithiasis. Stomach and Bowel: There is circumferential wall thickening of the rectum, possibly due to partial decompression. No significant perirectal inflammation. Normal quantity of solid stool present throughout the rest of the colon. No suspicious colon wall thickening. Normal appendix. Decompressed and some fluid-filled small bowel loops. Normal stomach. Peritoneum: No abnormal intraperitoneal fluid. No free air. Ventral Wall: No significant ventral hernia. Abdominal Nodes: No retroperitoneal or mesenteric adenopathy by size criteria. Vessels: Aorta and inferior vena cava are normal in size. Retro aortic left renal vein. PELVIS: Pelvic Organs: Unremarkable. Bladder: Mild diffuse urinary bladder wall thickening. No stones. Pelvic Nodes: Numerous borderline bilateral inguinal and pelvic lymph nodes. No bulky adenopathy. Miscellaneous: No inguinal hernias are seen. Bones: No aggressive osseous abnormality. IMPRESSION: Decompressed rectum with possibly thickened wall. Clinical correlation recommended. There are no other changes of colitis. Gastroenteritis may have this appearance. Mild diffuse urinary bladder wall thickening. Correlate with UA to exclude cystitis. 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 Correlate with renal function. Probable trace cholelithiasis. Dictated by: Cheyenne Kowalski M.D. on 04/28/2023 at 17:14 Approved by: Cheyenne Kowalski M.D. on 04/28/2023 at 17:20
--- NOTE | 2023-04-28 17:39 | DI.US.S_ITS ---
PROCEDURE: US ABDOMEN LIMITED INDICATIONS: Abdominal pain - CT reveals trace cholelithiasis TECHNIQUE: Real-time focused scanning was performed of the abdomen, with image documentation. COMPARISON: None. FINDINGS: The gallbladder contains dependent granular calcifications clumped together. These are mobile within the gallbladder. Gallbladder wall is normal thickness. No pericholecystic fluid or sonographic Armijo sign. Common duct is between six and 7 mm. The visible portions of the liver are normal. The right kidney is slightly prominent in size but without hydronephrosis. There is an echogenic focus in the lower pole of the kidney, fat versus calcification. No stone was seen on CT. IMPRESSION: Cholelithiasis without sonographic evidence of acute cholecystitis. Preliminary report conveyed by the rn licensed practical to the ordering provider. Dictated by: Cheyenne Kowalski M.D. on 04/28/2023 at 19:52 Approved by: Cheyenne Kowalski M.D. on 04/28/2023 at 19:57
[2023-04-28 19:27] VITALS: BP 168/92; PULSE 94; RESP 18; O2SAT 97
== END 2023-04-28 19:35 | disposition home or self-care (01) ==
PROVIDERS: Emergency Medicine; Emergency Provider Registered Nurse
DX: R10.84 Generalized abdominal pain (principal); E11.621 Type 2 diabetes mellitus with foot ulcer; L97.522 Non-pressure chronic ulcer of other part of left foot with fat layer exposed; L97.516 Non-pressure chronic ulcer of other part of right foot with bone involvement without evidence of necrosis; L84 Corns and callosities; R23.4 Changes in skin texture; I10 Essential (primary) hypertension
CPT/HCPCS: 11042; 36415; 74022; 74177; 76705; 80053; 81003; 81015; 83690; 85025; 99284; Q9967

== ENCOUNTER → 2023-05-05 14:52 | Outpatient (CLI) | payer OTHER, SELFPAY ==
[2019-04-26 15:58] VITALS: BMI 29.9
== END ==
PROVIDERS: Visit Provider Surgery
DX: E11.621 Type 2 diabetes mellitus with foot ulcer (principal); L97.525 Non-pressure chronic ulcer of other part of left foot with muscle involvement without evidence of necrosis; L97.516 Non-pressure chronic ulcer of other part of right foot with bone involvement without evidence of necrosis; L84 Corns and callosities; M86.171 Other acute osteomyelitis, right ankle and foot; Z79.4 Long term (current) use of insulin; Z79.2 Long term (current) use of antibiotics
CPT/HCPCS: 11042; 99213

== ENCOUNTER → 2023-05-12 14:18 | Outpatient (CLI) | payer OTHER, SELFPAY ==
[2019-04-26 15:58] VITALS: BMI 29.9
== END ==
LOC: WC 14:19
PROVIDERS: Visit Provider Physician Assistant
DX: E11.621 Type 2 diabetes mellitus with foot ulcer (principal); L97.525 Non-pressure chronic ulcer of other part of left foot with muscle involvement without evidence of necrosis; L97.516 Non-pressure chronic ulcer of other part of right foot with bone involvement without evidence of necrosis; L84 Corns and callosities; R23.4 Changes in skin texture; Z91.199 Patient's noncompliance with other medical treatment and regimen due to unspecified reason
CPT/HCPCS: 11042; 99213

== ENCOUNTER → 2023-06-02 15:43 | Outpatient (CLI) | payer OTHER, SELFPAY ==
[2019-04-26 15:58] VITALS: BMI 29.9
== END ==
LOC: WC 15:44
PROVIDERS: Visit Provider Physician Assistant
DX: E11.621 Type 2 diabetes mellitus with foot ulcer (principal); L97.525 Non-pressure chronic ulcer of other part of left foot with muscle involvement without evidence of necrosis; L97.516 Non-pressure chronic ulcer of other part of right foot with bone involvement without evidence of necrosis; L84 Corns and callosities; M86.171 Other acute osteomyelitis, right ankle and foot; I10 Essential (primary) hypertension; Z79.4 Long term (current) use of insulin; E11.40 Type 2 diabetes mellitus with diabetic neuropathy, unspecified
CPT/HCPCS: 11042; 99213

== ENCOUNTER → 2023-06-09 15:07 | Outpatient (CLI) | payer OTHER, SELFPAY ==
[2019-04-26 15:58] VITALS: BMI 29.9
== END ==
LOC: WC 15:11
PROVIDERS: Visit Provider Physician Assistant
DX: E11.621 Type 2 diabetes mellitus with foot ulcer (principal); L97.525 Non-pressure chronic ulcer of other part of left foot with muscle involvement without evidence of necrosis; L97.516 Non-pressure chronic ulcer of other part of right foot with bone involvement without evidence of necrosis; L84 Corns and callosities; E11.42 Type 2 diabetes mellitus with diabetic polyneuropathy; Z79.4 Long term (current) use of insulin; Z79.2 Long term (current) use of antibiotics
CPT/HCPCS: 11042; 87070; 87075; 87077; 87147; 87186; 87205; 99213; 99214

== ENCOUNTER → 2023-06-16 14:45 | Outpatient (CLI) | payer OTHER, SELFPAY ==
[2019-04-26 15:58] VITALS: BMI 29.9
== END ==
LOC: WC 14:46
PROVIDERS: Visit Provider Physician Assistant
DX: E11.621 Type 2 diabetes mellitus with foot ulcer (principal); L97.525 Non-pressure chronic ulcer of other part of left foot with muscle involvement without evidence of necrosis; L97.516 Non-pressure chronic ulcer of other part of right foot with bone involvement without evidence of necrosis; L84 Corns and callosities; M86.171 Other acute osteomyelitis, right ankle and foot; I10 Essential (primary) hypertension; E11.42 Type 2 diabetes mellitus with diabetic polyneuropathy; Z79.4 Long term (current) use of insulin; Z79.2 Long term (current) use of antibiotics
CPT/HCPCS: 11042; 99214

== ENCOUNTER → 2023-06-26 13:44 | Outpatient (CLI) | payer OTHER, SELFPAY ==
[2019-04-26 15:58] VITALS: BMI 29.9
== END ==
LOC: WC 13:44
PROVIDERS: Visit Provider Surgery
DX: E11.621 Type 2 diabetes mellitus with foot ulcer (principal); L97.525 Non-pressure chronic ulcer of other part of left foot with muscle involvement without evidence of necrosis; L97.516 Non-pressure chronic ulcer of other part of right foot with bone involvement without evidence of necrosis; L84 Corns and callosities; Z86.31 Personal history of diabetic foot ulcer; M86.171 Other acute osteomyelitis, right ankle and foot; Z91.199 Patient's noncompliance with other medical treatment and regimen due to unspecified reason; I10 Essential (primary) hypertension; Z79.4 Long term (current) use of insulin; Z79.2 Long term (current) use of antibiotics
CPT/HCPCS: 11042; 99214

== ENCOUNTER → 2023-07-03 13:46 | Outpatient (CLI) | payer OTHER, SELFPAY ==
[2019-04-26 15:58] VITALS: BMI 29.9
== END ==
LOC: WC 13:50
PROVIDERS: Visit Provider Surgery
DX: E11.621 Type 2 diabetes mellitus with foot ulcer (principal); L97.525 Non-pressure chronic ulcer of other part of left foot with muscle involvement without evidence of necrosis; L97.516 Non-pressure chronic ulcer of other part of right foot with bone involvement without evidence of necrosis; L84 Corns and callosities; M86.171 Other acute osteomyelitis, right ankle and foot; Z91.199 Patient's noncompliance with other medical treatment and regimen due to unspecified reason; Z79.4 Long term (current) use of insulin
CPT/HCPCS: 11042; 99212; 99213

== ENCOUNTER → 2023-08-01 09:10 | Outpatient (CLI) | payer OTHER, SELFPAY ==
[2019-04-26 15:58] VITALS: BMI 29.9
== END ==
LOC: WC 09:17
PROVIDERS: Visit Provider Surgery
DX: E11.621 Type 2 diabetes mellitus with foot ulcer (principal); L97.522 Non-pressure chronic ulcer of other part of left foot with fat layer exposed; L97.512 Non-pressure chronic ulcer of other part of right foot with fat layer exposed; L84 Corns and callosities; M86.171 Other acute osteomyelitis, right ankle and foot; I10 Essential (primary) hypertension; Z91.199 Patient's noncompliance with other medical treatment and regimen due to unspecified reason; Z79.4 Long term (current) use of insulin; Z89.422 Acquired absence of other left toe(s)
CPT/HCPCS: 11042; 99213

== ENCOUNTER → 2023-08-24 15:12 | Outpatient (CLI) | payer OTHER, SELFPAY ==
[2019-04-26 15:58] VITALS: BMI 29.9
== END ==
PROVIDERS: Visit Provider Physician Assistant
DX: E11.621 Type 2 diabetes mellitus with foot ulcer (principal); E11.42 Type 2 diabetes mellitus with diabetic polyneuropathy; L97.522 Non-pressure chronic ulcer of other part of left foot with fat layer exposed; L97.512 Non-pressure chronic ulcer of other part of right foot with fat layer exposed; L84 Corns and callosities; M86.171 Other acute osteomyelitis, right ankle and foot; I10 Essential (primary) hypertension; Z89.422 Acquired absence of other left toe(s); Z91.199 Patient's noncompliance with other medical treatment and regimen due to unspecified reason
CPT/HCPCS: 11042; 99215

== ENCOUNTER → 2023-08-24 | Outpatient (CLI) | payer OTHER, SELFPAY ==
[2019-04-26 15:58] VITALS: BMI 29.9
--- NOTE | 2023-08-24 16:09 | DI.RAD.S_ITS ---
PROCEDURE: XR FOOT LT MIN 3V INDICATIONS: diabetic foot ulcer on left plantar 5th metatarsal head TECHNIQUE: 3 views of the foot were acquired. COMPARISON: [facility], CR, XR FOOT LT MIN 3V, 04/14/2023, 13:02. FINDINGS: Bones: Stable postsurgical changes of amputation of the 5th toe at the level of the proximal 5th metatarsal. Stable postsurgical changes at the level of the proximal phalanx of the 1st toe. There appears to be clean cortical margins at the amputation site. No evidence for osseous erosions or abnormal periosteal reaction. There is mild overlying soft tissue swelling. No soft tissue gas seen. Remainder of the visualized osseous structures appear intact. Background degenerative changes of the midfoot and ankle not significantly changed. Soft tissues: No tibiotalar joint effusion. Achilles tendon appears normal. IMPRESSION: Stable postsurgical changes of prior amputation at the base of the 5th metatarsal and proximal phalanx of the 1st toe. No evidence for osseous erosions. Mild soft tissue swelling. No soft tissue gas. Although no bony erosions are identified, radiographic evaluation is relatively insensitive in the acute phase of osteomyelitis and may not demonstrate radiographic findings for approximately 15 days. If acute osteomyelitis is of clinical concern, three-phase nuclear medicine regional bone scan or MRI is recommended. Dictated by: Bienvenido Novak M.D. on 08/24/2023 at 19:06 Approved by: Bienvenido Novak M.D. on 08/24/2023 at 19:09
--- NOTE | 2023-08-24 16:09 | DI.RAD.S_ITS ---
PROCEDURE: XR FOOT RT MIN 3V INDICATIONS: diabetic ulcer on plantar right 5th metatarsal head TECHNIQUE: 3 views of the foot were acquired. COMPARISON: [facility], CR, XR FOOT RT MIN 3V, 04/14/2023, 13:02. [facility], CR, XR FOOT LT MIN 3V, 04/14/2023, 13:02. FINDINGS: Bones: No acute fracture or dislocation. Stable appearance of moderate degenerative changes of the right ray with erosive changes noted at the head and neck of the 5th metatarsal as well as the base of the 5th toe proximal phalanx. No evidence for cortical destruction. No suspicious periosteal reaction. Background degenerative changes of the midfoot are again noted. Soft tissues: No tibiotalar joint effusion. Achilles tendon appears normal. Soft tissue swelling overlying the lateral aspect of the distal right foot. IMPRESSION: Soft tissue swelling of the distal lateral right foot with underlying chronic appearing osseous changes of the distal 5th metatarsal and proximal phalanx of the 5th toe. No definite cortical destruction or periosteal reaction. If there is high persistent concern for osteomyelitis, further evaluation with MRI can be considered. Dictated by: Bienvenido Novak M.D. on 08/24/2023 at 19:03 Approved by: Bienvenido Novak M.D. on 08/24/2023 at 19:06
== END ==
PROVIDERS: Referring Provider Physician Assistant; Visit Provider Physician Assistant
DX: E11.621 Type 2 diabetes mellitus with foot ulcer (principal); L97.519 Non-pressure chronic ulcer of other part of right foot with unspecified severity; E11.42 Type 2 diabetes mellitus with diabetic polyneuropathy; L97.522 Non-pressure chronic ulcer of other part of left foot with fat layer exposed; L97.512 Non-pressure chronic ulcer of other part of right foot with fat layer exposed; L84 Corns and callosities; M86.171 Other acute osteomyelitis, right ankle and foot; I10 Essential (primary) hypertension; Z89.422 Acquired absence of other left toe(s); Z91.199 Patient's noncompliance with other medical treatment and regimen due to unspecified reason
CPT/HCPCS: 11042; 73630

== ENCOUNTER → 2023-11-24 12:01 | Outpatient (CLI) | payer OTHER, SELFPAY ==
[2019-04-26 15:58] VITALS: BMI 29.9
[2023-11-24 13:40] LABS: Add Manual Diff / Slide Review NO; Basophils Absolute Auto 100 /uL (0-100); Eosinophils Absolute Auto 300 /uL (0-450); Hematocrit 42.2 % (41-53); Hemoglobin 13.8 g/dL (13.5-17.5); Lymphocytes Absolute Auto 2400 /uL (1100-4500); Lymphocytes Percent Auto 36.1 % (25-40); Mean Corpuscular HGB Conc 32.7 % (30-36); Mean Corpuscular Hemoglobin 27.2 PG (26-34); Monocytes Absolute Auto 500 /uL (0-900); Monocytes Percent Auto 6.7 % (3-14); Neutrophils Absolute Auto 3500 /uL (1500-7000); Neutrophils Percent Auto 52.2 % (50-75); Platelet Count 269 X10^3/uL (150-400); Red Blood Cell Count 5.09 X10^6/uL (4.5-5.9); Red Cell Distribution Width 15.1 % (11.6-14.8); White Blood Cell Count 6.8 X10^3/uL (4.5-11.0)
[2023-11-24 13:44] LABS: Hemoglobin A1C% w Est Avg Glu 8.6 % (4.0-6.0)
[2023-11-24 14:09] LABS: Alanine Aminotransferase 31 IU/L (<50); Albumin 3.4 g/dL (3.5-5.0); Alkaline Phosphatase 57 U/L (38-126); Aspartate Aminotransferase 22 IU/L (17-59); BUN Creatinine Ratio 15.6 (6-22); Bilirubin Total 0.5 mg/dL (0.2-1.3); Blood Urea Nitrogen 22 mg/dL (9-20); Calcium 8.9 mg/dL (8.4-10.2); Carbon Dioxide 26 mmol/L (22-32); Chloride 103 mmol/L (98-107); Cholesterol 318 mg/dL (140-199); Estimated Glomerular Filt Rate > 60 mL/min (>60); Globulin 3.4 g/dL (1.7-4.1); Glucose 209 mg/dL (70-100); HDL Cholesterol 60 mg/dL (40-60); HEMOLYSIS < 15 (0-50); LDL Cholesterol Calculated 238 mg/dL (<100); Lipase 229 U/L (23-300); Potassium 4.5 mmol/L (3.4-5.1); Sodium 135 mmol/L (137-145); Total Protein 6.8 g/dL (6.3-8.2); Triglycerides 102 mg/dL (35-150)
[2023-11-24 14:23] LABS: Erythrocyte Sedimentation Rate 31 MM/HR (0-15)
== END ==
PROVIDERS: PCP Family Medicine; Referring Provider Orthopaedic Surgery Foot and Ankle Surgery; Visit Provider Orthopaedic Surgery Foot and Ankle Surgery
DX: M86.671 Other chronic osteomyelitis, right ankle and foot (principal); I10 Essential (primary) hypertension; E78.5 Hyperlipidemia, unspecified; R74.8 Abnormal levels of other serum enzymes; E11.9 Type 2 diabetes mellitus without complications
CPT/HCPCS: 36415; 80053; 80061; 83036; 83690; 85025; 85651; 86140

== ENCOUNTER → 2023-12-07 11:01 | Outpatient (CLI) | payer OTHER, SELFPAY ==
[2019-04-26 15:58] VITALS: BMI 29.9
--- NOTE | 2023-12-07 11:02 | DI.MRI.S_ITS ---
PROCEDURE: MR ANKLE RT WO/W CON INDICATIONS: CHRONIC OSTEOMYELITIS RT FOOT TECHNIQUE: Noncontrast sagittal T1 spin echo and T2 fast spin echo with fat saturation, axial proton density fast spin echo and T2 fast spin echo with fat saturation, axial T1 spin echo with fat saturation, coronal T1 spin echo and T2 fast spin echo with fat saturation through the ankle/hindfoot. Post-contrast axial, coronal, and sagittal T1 spin echo with fat saturation through the ankle/hindfoot. COMPARISON: [facility], MR, MR FOOT RT WO/W CON, 04/21/2023, 9:47. [facility] [place], CR, XR FOOT 3 VIEWS WEIGHT BEARING RIGHT, 11/07/2023, 14:56. FINDINGS: Image quality: Excellent Tendons: Mild tenosynovitis of the posterior tibialis. The flexor digitorum longus and the flexor hallucis longus are unremarkable. The extensor tendons are unremarkable. Mild tenosynovitis of the peroneal longus. Longitudinal split tear of the peroneal brevis at the level of the lateral malleolus. Full-thickness tear of the peroneal brevis about the 5th metatarsal base insertion. Rupture of the mid Achilles tendon with a tendon gap of approximately 2.0 cm. There is additional near full thickness, partial width tear of the distal Achilles tendon. Severe tendinosis of the Achilles tendon. Ligaments: The anterior and the posterior tibiofibular ligament are intact. The anterior and the posterior talofibular ligament are intact. The calcaneofibular ligament is intact. The deep portion of the deltoid ligament is intact. Sinus tarsi: No fibrosis Plantar fascia unremarkable Muscles: Diffuse muscle edema, nonspecific. 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 Diffuse marrow edema with confluent T1 hypointensity of the residual 5th metatarsal, the proximal 4th metatarsal , the proximal 3rd metatarsal, the cuboid, likely representing osteomyelitis. Diffuse marrow edema without confluent T1 hypointensity of the lateral cuneiform, representing reactive marrow edema. Mild marrow edema of the lateral and medial malleolus without T1 complex hypointensity, non-specific and likely representing reactive marrow edema. Mild marrow edema at the dorsal talus neck, without confluent T1 hypointensity, nonspecific, likely reactive. Small tibiotalar effusion. No drainable fluid collection. IMPRESSION: 1. Full-thickness tear of the peroneal brevis about the 5th metatarsal insertion. 2. Rupture of the mid Achilles tendon. 3. Osteomyelitis of the residual 5th metatarsal, the proximal 3rd, 4th metatarsal, and the cuboid. 4. Reactive marrow edema of the lateral cuneiform, and to a lesser extent the medial and lateral malleolus and the dorsal talus neck. Dictated by: Bhargavi Chicas M.D. on 12/08/2023 at 10:00 Approved by: Bhargavi Chicas M.D. on 12/08/2023 at 10:20
== END ==
PROVIDERS: PCP Family Medicine; Referring Provider Orthopaedic Surgery Foot and Ankle Surgery; Visit Provider Orthopaedic Surgery Foot and Ankle Surgery
DX: M86.671 Other chronic osteomyelitis, right ankle and foot (principal); S86.011A Strain of right Achilles tendon, initial encounter; S96.811A Strain of other specified muscles and tendons at ankle and foot level, right foot, initial encounter; R60.0 Localized edema; Z89.421 Acquired absence of other right toe(s)
CPT/HCPCS: 73723; A9579

== ENCOUNTER → 2024-01-03 14:58 | Outpatient (CLI) | payer OTHER, SELFPAY ==
[2019-04-26 15:58] VITALS: BMI 29.9
--- NOTE | 2024-01-03 14:59 | DI.NM.S_ITS ---
PROCEDURE: NM BONE 3 PHASE RADIOPHARMACEUTICAL: 19.9 mCi Tc-99m MDP IV. INDICATIONS: OSTEOMYELITIS RT FOOT TECHNIQUE: Multiple bone scintigrams were obtained after intravenous injection of Tc-99m MDP, including flow, blood pool, and delayed images centered to the region of interest. COMPARISON: [facility] [place], CR, XR FOOT 3 VIEWS WEIGHT BEARING RIGHT, 11/07/2023, 14:56. [facility], MR, MR ANKLE RT WO/W CON, 12/07/2023, 11:09. FINDINGS: There is appearance of increased flow blood pool and delayed uptake predominantly within the right foot. It appears most significant at the 5th residual metatarsal base an adjacent cuneiform. Uptake on all 3 phases although much less prominent is also present within the region of the left residual metatarsal in adjacent cuneiform. IMPRESSION: Highly suspicious uptake for osteomyelitis at the residual base of the 5th metatarsal and suspected adjacent cuneiform. Less prominent uptake is identified in the similar region in the right foot. While this could represent overall inflammation, developing osteomyelitis cannot be definitively excluded. Dictated by: Erika Paul M.D. on 01/04/2024 at 14:37 Approved by: Erika Paul M.D. on 01/04/2024 at 15:08
== END ==
LOC: NUCM 14:58
PROVIDERS: PCP Family Medicine; Referring Provider Orthopaedic Surgery Foot and Ankle Surgery; Visit Provider Orthopaedic Surgery Foot and Ankle Surgery
DX: M86.8X7 Other osteomyelitis, ankle and foot (principal)
CPT/HCPCS: 78315; A9503

== ENCOUNTER 2024-01-24 10:49 | Day surgery (SDC) | payer OTHER, SELFPAY ==
[2019-04-26 15:58] VITALS: BMI 29.9
--- NOTE | 2024-01-24 | PATH_ITS ---
[facility] Accession Number: [id number] No. of containers..01 Tissue . 01 Material submitted: . foot - RIGHT FOOT . 01 Diagnosis: RIGHT FOOT, BIOPSY: Fragment of bone with remodeling/reactive changes and interspersed marrow with fibrosis. Negative for significant inflammation; please see comment. Negative for malignancy. SHAJI 01/26/2024 1509 Local . 01 Comment: Histologic features diagnostic for acute osteomyelitis are not present on the submitted biopsy. Clinical and radiologic correlation is recommended. . 01 Electronically signed: . Rome Castillo MD, Pathologist NPI- [id number] . 01 Gross description: . Received in formalin with two patient identifiers and right foot, is a calle to brown fragment of presumed bone 0.5 x 0.3 x 0.3 cm. Submitted intact in cassette A1 after decalcification. ([id number]) /SHAJI 01/25/2024 0953 Local . 01 Pathologist provided ICD-10: M86.471, M67.01 . 01 CPT . 592933, [id number] Specimen Comment: A courtesy copy of this report has been sent to [phone] Performed at: [address] [facility] [address], [place], [place] [id number] MD Nuno Cordon MD Phone: [phone]
[2024-01-24 11:12] VITALS: BP 194/108; PULSE 102; RESP 16; TEMP 36.3; O2SAT 97; BMI 32.5
--- NOTE | 2024-01-24 12:05 | PM.PREOP ---
Pre-operative Note Interval Note History & Physical reviewed/Exam performed by Physician: Yes Changes to H&P: No H&P completed within 30 days and has changed as indicated here:: Plan for bone biopsy under local anesthetic. For osteomyelitis right foot
--- NOTE | 2024-01-24 14:18 | SUR.OPER ---
Supine on padded OR bed, head on pillow, arms secured on padded arm boards at <90 degrees abduction, legs uncrossed, safety belt at thigh, tape over blanket over lower legs.
--- NOTE | 2024-01-24 14:29 | PM.OP.1 ---
Operative Date/Time/Diagnoses Date of procedure: 01/24/24 Time of procedure: 14:29 Pre-op diagnosis: Osteomyelitis right foot, diabetic foot ulcer Post-op diagnosis: same Procedure & Clinicians Procedure: Deep bone biopsy right CPT code 06323 deep bone biopsy right 5th metatarsal base and right cuboid bone. Two separate sites. Same procedure as scheduled: Yes Indications: The patient is a 43-year-old male with uncontrolled diabetes and a history of diabetic foot infection status post partial 5th ray amputation. He would residual swelling and residual signal changes on MRI concerning for persistent osteomyelitis at the 5th metatarsal base and into the cuboid. He is completed IV antibiotics with Infectious Disease. He is indicated for deep bone biopsy to evaluate for persistent osteomyelitis. The risks and benefits of the procedure have been discussed with the patient and given the opportunity to ask questions. The risks of surgery include but are not limited to infection, persistent pain, need for additional procedures.. The patient expressed a thorough understanding of the risks and benefits of surgery and has elected to proceed. Consent was signed Surgeon: Tahmina Caban Click Yes if Unassisted: Yes Anesthesia Type: Local Operative Notes Findings: Previous partial 5th ray amputation. Well-healed surgical incision. No open or draining wounds. Fairly soft cuboid and 5th metatarsal bone during biopsy. Closure Type: primary Specimen(s): other Prosthetic devices, grafts, tissues, transplants, or devices: Bone sent for pathology, culture, bacterial PCR Estimated Blood Loss (mL): 5 Blood products transfused: none Tourniquet time (min): 0 Procedure in detail: Patient was seen in the preoperative area the site of surgery was marked this was the right foot. Right foot was prepped and draped in the standard sterile procedure. A formal time-out procedure was performed confirming the patient site and side of surgery. No antibiotics were indicated for this deep bone biopsy and the patient had been on an appropriate antibiotic holiday. Attention was turned to the right foot. C-arm was brought in and targeted sites of the 5th metatarsal base of the cuboid were marked. An incision was made over the skin adjacent to the 5th metatarsal base. This was dissected down to bone and then the 8 gauge trocar was inserted down to bone and passed in multiple pathways through the bone to extract multiple cores to be sent for culture and pathology. Next a separate incision was made adjacent to the cuboid bone and the dissection was taken down to the level of the bone and again the trocar inserted and passed in multiple passes to extract multiple cores of cuboid bone. Samples from the 5th metatarsal base and the cuboid bone were confirmed on intraoperative fluoroscopy. Once this was completed the instruments were removed. A 4-0 nylon suture was used to close the 2 wounds. And a sterile dressing was applied. The patient was taken to the postoperative unit in good condition there were no immediate complications from this procedure. Counts were correct. Separate incision of the samples were taken from the 5th metatarsal base and from the cuboid bone. These were sent as ?right foot bone? for pathology and culture. Complications: none Post-operative Condition: stable Disposition: PACU Plan for aftercare: Weightbear as tolerated. Follow up in 2 weeks for suture removal. Depending on culture results may require additional follow up with the Infectious Disease.
[2024-01-24 14:40] VITALS: BP 154/97; PULSE 96; RESP 14; TEMP 36.6; O2SAT 96
== END 2024-01-24 14:45 | disposition home or self-care (01) ==
PROVIDERS: PCP Family Medicine; Referring Provider Orthopaedic Surgery Foot and Ankle Surgery; Visit Provider Orthopaedic Surgery Foot and Ankle Surgery
PROC: (CPT 20245; principal; 2024-01-24 12:45)
DX: M86.471 Chronic osteomyelitis with draining sinus, right ankle and foot (principal); E11.9 Type 2 diabetes mellitus without complications
CPT/HCPCS: 20245 ×2; 82962; 87070; 87075; 87205; 87801; J2250; J3010

== ENCOUNTER → 2024-01-25 15:39 | Outpatient (CLI) | payer OTHER, SELFPAY ==
[2019-04-26 15:58] VITALS: BMI 29.9
[2024-01-25 17:09] LABS: Add Manual Diff / Slide Review NO; Basophils Absolute Auto 100 /uL (0-100); Basophils Percent Auto 0.7 % (0-2); Eosinophils Absolute Auto 300 /uL (0-450); Eosinophils Percent Auto 2.9 % (2-4); Hematocrit 49.5 % (41-53); Hemoglobin 16.6 g/dL (13.5-17.5); Lymphocytes Absolute Auto 2900 /uL (1100-4500); Lymphocytes Percent Auto 31.5 % (25-40); Mean Corpuscular HGB Conc 33.5 % (30-36); Mean Corpuscular Hemoglobin 27.5 PG (26-34); Mean Corpuscular Volume 82.2 fL (80-100); Monocytes Absolute Auto 700 /uL (0-900); Monocytes Percent Auto 7.6 % (3-14); Neutrophils Absolute Auto 5200 /uL (1500-7000); Neutrophils Percent Auto 57.3 % (50-75); Platelet Count 255 X10^3/uL (150-400); Red Blood Cell Count 6.02 X10^6/uL (4.5-5.9); Red Cell Distribution Width 14.5 % (11.6-14.8); White Blood Cell Count 9.1 X10^3/uL (4.5-11.0)
[2024-01-25 17:31] LABS: Alanine Aminotransferase 25 IU/L (<50); Albumin 3.5 g/dL (3.5-5.0); Albumin Globulin Ratio 1.1 (1.0-2.8); Alkaline Phosphatase 54 U/L (38-126); Aspartate Aminotransferase 20 IU/L (17-59); BUN Creatinine Ratio 17.4 (6-22); Bilirubin Total 0.7 mg/dL (0.2-1.3); Blood Urea Nitrogen 28 mg/dL (9-20); Calcium 9.1 mg/dL (8.4-10.2); Carbon Dioxide 29 mmol/L (22-32); Chloride 97 mmol/L (98-107); Cholesterol 295 mg/dL (140-199); Estimated Glomerular Filt Rate 53 mL/min (>60); Globulin 3.1 g/dL (1.7-4.1); Glucose 198 mg/dL (70-100); HDL Cholesterol 51 mg/dL (40-60); HEMOLYSIS < 15 (0-50); LDL Cholesterol Calculated 213 mg/dL (<100); Potassium 4.2 mmol/L (3.4-5.1); Sodium 133 mmol/L (137-145); Total Protein 6.6 g/dL (6.3-8.2); Triglycerides 153 mg/dL (35-150)
[2024-01-25 17:34] LABS: Hemoglobin A1C% w Est Avg Glu 9.8 % (4.0-6.0)
[2024-01-25 17:56] LABS: Creatinine Urine Random 111.55 mg/dL
[2024-01-25 18:43] LABS: Microalbumin Urine Random > 114.0 mg/dL (0-1.6)
== END ==
PROVIDERS: PCP Family Medicine; Referring Provider Family Medicine; Visit Provider Family Medicine
DX: E78.5 Hyperlipidemia, unspecified (principal); E11.29 Type 2 diabetes mellitus with other diabetic kidney complication; R80.9 Proteinuria, unspecified; I10 Essential (primary) hypertension; E11.621 Type 2 diabetes mellitus with foot ulcer; L97.519 Non-pressure chronic ulcer of other part of right foot with unspecified severity
CPT/HCPCS: 36415; 80053; 80061; 82043; 82570; 83036; 85025